=== PATIENT | male | born 1935 | race Caucasian/White ===

== ENCOUNTER 2020-11-10 14:16 | Inpatient (IN) | payer MEDICARE ==
--- NOTE | 2020-11-10 14:41 | ED ---
General Adult HPI - General Chief complaint: Shortness of Breath Stated complaint: Pneumonia Time Seen by Provider: 11/10/20 14:20 Source: patient, EMS, RN notes reviewed, old records reviewed Mode of arrival: EMS Limitations: no limitations - History of Present Illness Initial comments: This is an 85-year-old male presents emergency department from [facility]. During the week the patient complained of difficulty breathing for at least a week he went saw a physician and he was put on Augmentin however the difficulty breathing and cough got worse and went to the emergency department [facility] and they diagnosed with bilateral pneumonia and start him on IV antibiotics and requested transfer to our facility. Patient COVID neg ative test today. Patient states he didn't know that he had a fever but he felt like it broke today. Patient denies any chest pain patient denies abdominal pain patient denies any lightheadedness or dizziness. Patient denies any other symptoms at this time except for difficulty breathing and a cough. Patient was started on IV antibiotics at the other facility. - Related Data Home Medications Medication Instructions Recorded Confirmed Aspirin 81 mg PO DAILY 03/03/15 03/03/15 Cholecalciferol [Vitamin D3] 1,000 unit PO DAILY 03/03/15 03/03/15 Exenatide [Byetta] 5 mcg SQ BID 03/03/15 03/03/15 Ezetimibe [Zetia] 10 mg PO HS 03/03/15 03/03/15 Glimepiride [Amaryl] 2 mg PO BID 03/03/15 03/03/15 Insulin Glargine [Lantus] 11 unit SQ BID 03/03/15 03/04/15 Lisinopril/Hydrochlorothiazide 1 tab PO QAM 03/03/15 03/03/15 [Zestoretic 20-12.5 mg Tablet] amLODIPine [Norvasc] 5 mg PO QAM 03/03/15 03/03/15 atenoloL [Tenormin] 25 mg PO QAM 03/03/15 03/03/15 Previous Rx's Medication Instructions Recorded HYDROcodone/APAP 5-325MG [[place]que[place] 5] 1 - 2 each PO Q4H PRN #20 tab 03/04/15 Allergies Allergy/AdvReac Type Severity Reaction Status Date / Time No Known Allergies Allergy Verified 08/09/21 14:34 Review of Systems ROS Statement: Those systems with pertinent positive or pertinent negative responses have been documented in the HPI. ROS Other: All systems not noted in ROS Statement are negative. Past Medical History Past Medical History: Diabetes Mellitus, GERD/Reflux, Hypertension, Myocardial Infarction ([place]), Pneumonia, Skin Disorder Additional Past Medical History / Comment(s): skin lesions,varicose vein,constipation Last Myocardial Infarction Date:: ?2010 History of Any Multi-Drug Resistant Organisms: None Reported Past Surgical History: Appendectomy, Heart Catheterization With Stent Additional Past Surgical History / Comment(s): heart stents X 6,skin lesions removed, gallbladder removed Past Anesthesia/Blood Transfusion Reactions: No Reported Reaction Date of Last Stent Placement:: ?2010 Past Psychological History: No Psychological Hx Reported Smoking Status: Former smoker Past Alcohol Use History: None Reported Past Drug Use History: None Reported - Past Family History Mother Family Medical History: Myocardial Infarction ([place]) Father Family Medical History: Myocardial Infarction ([place]) General Exam - General Exam Comments Initial Comments: GENERAL: Patient is well-developed and well-nourished. Patient is nontoxic and well- hydrated and is in mild distress. ENT: Neck is soft and supple. No significant lymphadenopathy is noted. Oropharynx is clear. Moist mucous membranes. Neck has full range of motion without eliciting any pain. EYES: The sclera were anicteric and conjunctiva were pink and moist. Extraocular movements were intact and pupils were equal round and reactive to light. Eyelids were unremarkable. PULMONARY: Patient is crackles bilateral bases. CARDIOVASCULAR: There is a regular rate and rhythm without any murmurs gallops or rubs. ABDOMEN: Soft and nontender with normal bowel sounds. SKIN: Skin is clear with no lesions or rashes and otherwise unremarkable. NEUROLOGIC: Patient is alert and oriented x3. Cranial nerves II through XII are grossly intact. Motor and sensory are also intact. Normal speech, volume and content. Symmetrical smile. MUSCULOSKELETAL: Normal extremities with adequate strength and full range of motion. No lower extremity swelling or edema. No calf tenderness. LYMPHATICS: No significant lymphadenopathy is noted PSYCHIATRIC: Normal psychiatric evaluation. Limitations: no limitations Course Vital Signs 11/10/20 11/10/20 14:20 14:31 Temperature 98.1 F Pulse Rate 72 81 Respiratory 18 18 Rate Blood Pressure 168/86 165/89 O2 Sat by Pulse 98 98 Oximetry Medical Decision Making - Medical Decision Making I reviewed the x-ray and patient has pneumonia. I spoke with the [facility]ist agreed to admit the patient admitted the patient wrote admitting orders. Disposition Clinical Impression: Pneumonia, Failure of outpatient treatment Disposition: ADMITTED IP TO THIS HOSP Referrals: Madeleine De Dios MD [Primary Care Provider] - 1-2 days Time of Disposition: 14:41
[2020-11-10] MEDS ORDERED: PNEUMONIA PROTOCOL UTILIZED 1 EACH MISC PO PRN (14:45)
[2020-11-10] MEDS ORDERED: AZITHROMYCIN 500 MG in SODIUM CHLORIDE 0.9% 250 ML IVPB STA (14:45)
[2020-11-10 15:01] LABS: Basophils % (A) 0 %; Eosinophils # (A) 0.1 k/uL (0-0.7); Eosinophils % (A) 1 %; HCT 39.6 % (39.0-53.0); HGB 12.8 gm/dL (13.0-17.5); Lymphocytes # (A) 1.6 k/uL (1.0-4.8); Lymphocytes % (A) 16 %; MCH 30.4 pg (25.0-35.0); MCHC 32.3 g/dL (31.0-37.0); MCV 93.9 fL (80.0-100.0); Mean Platelet Volume 8.3; Monocytes # (A) 0.3 k/uL (0-1.0); Monocytes % (A) 3 %; Neutrophils # (A) 7.6 k/uL (1.3-7.7); Neutrophils % (A) 79 %; Platelet Count 275 k/uL (150-450); RBC 4.22 m/uL (4.30-5.90); RDW 12.7 % (11.5-15.5); WBC 9.6 k/uL (3.8-10.6)
[2020-11-10 15:13] LABS: Albumin 3.1 g/dL (3.5-5.0); Potassium 4.7 mmol/L (3.5-5.1); Total Bilirubin 0.5 mg/dL (0.2-1.3); Total Protein 5.7 g/dL (6.3-8.2)
[2020-11-10] MEDS ORDERED: IPRATROPIUM-ALBUTEROL 3 ML NEB INHALATION PRN (17:38)
--- NOTE | 2020-11-10 17:48 | P.HPIM ---
History of Present Illness Patient is an 85-year-old male was transferred from [facility] after he presented there with shortness of breath has been going on for about a week. Patient had a fever as well. Patient did receive Covid 19 vaccine. Covid 19 that was done at [facility] was negative although Covid 19 was repeated here because of the bilateral pneumonia with came back positive. Patient received Covid 19 vaccine in month of May. Patient was complaining of cough was also having some generalized body aches during last week. We'll obtain LDH, d-dimer, pro-calcitonin, pulmonary consultation. Patient is requiring 4 L of oxygen this time. Patient usually doesn't use oxygen at home. REVIEW OF SYSTEMS: CONSTITUTIONAL: As mentioned in the interval history HEENT: No recent visual problems or hearing problems. Denied any sore throat. CARDIOVASCULAR: No chest pain, orthopnea, PND, no palpitations, no syncope. PULMONARY: no hemoptysis. GASTROINTESTINAL: No diarrhea, no nausea, no vomiting, no abdominal pain. NEUROLOGICAL: No headaches, no weakness, no numbness. HEMATOLOGICAL: Denies any bleeding or petechiae. GENITOURINARY: Denies any burning micturition, frequency, or urgency. MUSCULOSKELETAL/RHEUMATOLOGICAL: Denies any joint pain, swelling, or any muscle pain. ENDOCRINE: Denies any polyuria or polydipsia. The rest of the 14-point review of systems is negative. PHYSICAL EXAMINATION: GENERAL: The patient is alert and oriented x3, not in any acute distress. Well developed, well nourished. HEENT: Pupils are round and equally reacting to light. EOMI. No scleral icterus. No conjunctival pallor. Normocephalic, atraumatic. No pharyngeal erythema. No thyromegaly. CARDIOVASCULAR: S1 and S2 present. No murmurs, rubs, or gallops. PULMONARY: Chest is clear to auscultation, no wheezing or crackles. ABDOMEN: Soft, nontender, nondistended, normoactive bowel sounds. No palpable organomegaly. MUSCULOSKELETAL: No joint swelling or deformity. EXTREMITIES: No cyanosis, clubbing, or pedal edema. NEUROLOGICAL: Gross neurological examination did not reveal any focal deficits. SKIN: No rashes. Assessment and plan -Covid 19 pneumonia patient has bilateral pneumonia: Patient will be started on Decadron, pulmonary will be consulted will repeat a chest x-ray. I'm unable to find any medical records from [facility]. Patient was started on Lovenox, d-dimer will be ordered. Patient will be started on Covid 19 vitamins, may qualify for Remdesivir. Pulmonology was consulted. -Type 2 diabetes mellitus: Patient blood sugars are expected to go up patient will be resumed on his home regimen but will increase the long-acting insulin dose 25 units twice a day from 17 units and patient was started on sliding scale insulin as well -Gastro-Esophageal reflux disease -Hypertension -Coronary artery disease disease with stents in the past -For above-mentioned chronic medical problems his home medications will be resumed once verified. DVT prophylaxis: Lovenox Past Medical History Past Medical History: Diabetes Mellitus, GERD/Reflux, Hypertension, Myocardial Infarction ([place]), Pneumonia, Skin Disorder Additional Past Medical History / Comment(s): skin lesions,varicose vein,constipation Last Myocardial Infarction Date:: ?2010 History of Any Multi-Drug Resistant Organisms: None Reported Past Surgical History: Appendectomy, Heart Catheterization With Stent Additional Past Surgical History / Comment(s): heart stents X 6,skin lesions removed, gallbladder removed Past Anesthesia/Blood Transfusion Reactions: No Reported Reaction Date of Last Stent Placement:: ?2010 Past Psychological History: No Psychological Hx Reported Smoking Status: Former smoker Past Alcohol Use History: None Reported Past Drug Use History: None Reported - Past Family History Mother Family Medical History: Myocardial Infarction ([place]) Father Family Medical History: Myocardial Infarction ([place]) Medications and Allergies Home Medications Medication Instructions Recorded Confirmed Type Aspirin 162 mg PO DAILY 03/03/15 11/10/20 History Cholecalciferol [Vitamin D3] 1,000 unit PO DAILY 03/03/15 11/10/20 History Exenatide [Byetta] 5 mcg SQ BID 03/03/15 03/03/15 History Ezetimibe [Zetia] 10 mg PO HS 03/03/15 03/03/15 History Glimepiride [Amaryl] 2 mg PO BID 03/03/15 03/03/15 History Insulin Glargine [Lantus] 17 unit SQ BID-W/MEALS 03/03/15 11/10/20 History Lisinopril/Hydrochlorothiazide 1 tab PO QAM 03/03/15 03/03/15 History [Zestoretic 20-12.5 mg Tablet] amLODIPine [Norvasc] 5 mg PO QAM 03/03/15 03/03/15 History atenoloL [Tenormin] 25 mg PO QAM 03/03/15 03/03/15 History HYDROcodone/APAP 5-325MG [[place] 5] 1 - 2 each PO Q4H PRN #20 tab 03/04/15 Rx Albuterol Inhaler [Ventolin Hfa 1 - 2 puff INHALATION RT-Q8H PRN 11/10/20 11/10/20 History Inhaler] Allergies Allergy/AdvReac Type Severity Reaction Status Date / Time metformin AdvReac Diarrhea Verified 11/10/20 16:56 Physical Exam Vitals: Vital Signs Temp Pulse Resp BP Pulse Ox 11/10/20 14:31 81 18 165/89 98 11/10/20 14:20 98.1 F 72 18 168/86 98 Intake and Output 11/10/20 11/10/20 11/10/20 06:59 14:59 22:59 Other: Weight 79.832 kg Results CBC & Chem 7: 11/10/20 14:39 11/10/20 14:39 Labs: Abnormal Lab Results - Last 24 Hours (Table) 11/10/20 11/10/20 11/10/20 Range/Units 14:39 14:39 14:39 RBC 4.22 L (4.30-5.90) m/uL Hgb 12.8 L (13.0-17.5) gm/dL Sodium 136 L (137-145) mmol/L Carbon Dioxide 20 L (22-30) mmol/L Glucose 268 H (74-99) mg/dL Plasma Lactic Acid Bart 2.3 H* (0.7-2.0) mmol/L Total Protein 5.7 L (6.3-8.2) g/dL Albumin 3.1 L (3.5-5.0) g/dL Coronavirus (PCR) (Not Detectd) 11/10/20 Range/Units 15:00 RBC (4.30-5.90) m/uL Hgb (13.0-17.5) gm/dL Sodium (137-145) mmol/L Carbon Dioxide (22-30) mmol/L Glucose (74-99) mg/dL Plasma Lactic Acid Bart (0.7-2.0) mmol/L Total Protein (6.3-8.2) g/dL Albumin (3.5-5.0) g/dL Coronavirus (PCR) Detected A (Not Detectd)
[2020-11-10] MEDS: dexAMETHasone 2 MG TAB PO SCH (18:09)
[2020-11-10 20:38] LABS: Glucose,Whole Blood 409 mg/dL (75-99)
[2020-11-10] MEDS ORDERED: ALBUTEROL HFA INHALER INHALATION PRN (20:43)
[2020-11-10] MEDS: FAMOTIDINE 20 MG TAB PO SCH (20:49)
[2020-11-10] MEDS: ASCORBIC ACID 500 MG TAB PO SCH (20:49)
[2020-11-10] MEDS: INSULIN ASPART (NovoLOG) 100 UNIT/ML VIAL SQ SCH (20:52)
[2020-11-10] MEDS ORDERED: ASCORBIC ACID 500 MG TAB PO SCH (21:00)
[2020-11-10] MEDS: GLIMEPIRIDE 2 MG TAB PO SCH (23:15)
[2020-11-11] MEDS ORDERED: INSULIN DETEMIR (LEVEMIR) 100 UNIT/ML SYR SQ SCH (07:30)
[2020-11-11 07:43] LABS: Glucose,Whole Blood 237 mg/dL (75-99)
[2020-11-11] MEDS: INSULIN ASPART (NovoLOG) 100 UNIT/ML VIAL SQ SCH ×4 (07:45→22:21)
[2020-11-11] MEDS: amLODIPine 5 MG TAB PO SCH (07:46)
[2020-11-11] MEDS: atenoloL 25 MG TAB PO SCH (07:46)
[2020-11-11] MEDS: ASCORBIC ACID 500 MG TAB PO SCH ×2 (07:46→22:21)
[2020-11-11] MEDS: dexAMETHasone 2 MG TAB PO SCH (07:47)
[2020-11-11] MEDS: ZINC SULFATE 220 MG CAP PO SCH (07:47)
[2020-11-11] MEDS: ENOXAPARIN 40 MG/0.4 ML SYRINGE SQ SCH (07:47)
[2020-11-11] MEDS: FAMOTIDINE 20 MG TAB PO SCH ×2 (07:47→22:21)
[2020-11-11] MEDS: CHOLECALCIFEROL 25 MCG (1000 IU) TABLET PO SCH (07:53)
[2020-11-11] MEDS ORDERED: AZITHROMYCIN 500 MG TAB PO SCH (09:00)
--- NOTE | 2020-11-11 09:03 | XR ---
EXAMINATION TYPE: XR chest 1V portable DATE OF EXAM: 11/11/2020 COMPARISON: Outside chest x-ray 11/10/2020 HISTORY: Covid pneumonia TECHNIQUE: Single frontal view of the chest is obtained. FINDINGS: Bilateral peripheral airspace disease is again noted. No evident pneumothorax. The hemidia phragms are obscured. Heart size is likely stable accounting for differences in technique. There are overlying artifacts. IMPRESSION: Findings consistent with patient's history of Covid pneumonia. There may be some progres yoon in airspace disease.
[2020-11-11] MEDS: GLIMEPIRIDE 2 MG TAB PO SCH ×2 (09:35→23:51)
--- NOTE | 2020-11-11 10:29 | P.CNPUL ---
History of Present Illness Consult date: 11/11/20 Requesting physician: Kishan Sandy Reason for consult: dyspnea, cough, hypoxemia, pneumonia, abnormal CXR/CT Chief complaint: Fatigue, cough, shortness of breath. History of present illness: Pulmonary/critical care consultation dated 11/11/2020. 85-year-old male, who presents to the emergency department via EMS, from [facility]. The patient states that he has not been feeling well for at least 8-10 days and may be a bit longer. His complaints include fatigue, shortness of breath, cough, and generally just not feeling well. He apparently saw his primary care provider, and was placed on Augmentin. At that point, things got worse, and he went to the emergency department at [facility] when he was diagnosed as having bilateral pneumonia. He was started on IV antibiotics and requested transfer to [facility]. The patient did test positive for coronavirus infection although his initial test was negative. The patient has a history of diabetes mellitus, GERD, hypertension, myocardial infarction, pneumonia, varicose veins, and chronic constipation. He also has a history of CAD, with previous heart catheterization and stent placement. Lab data includes a white count of 9.6, hemoglobin 12.8, hematocrit 39.6, and a platelet count of 275,000. D-dimer was 3.50. Sodium 136, potassium 4.7, chlorides 105, CO2 20, anion gap 11, BUN 19, and creatinine 0.97. Coronavirus testing here was positive. Chest x-ray shows diffuse bilateral airspace dise ase. Review of Systems REVIEW OF SYSTEMS: CONSTITUTIONAL: Fatigue, weakness, lack of energy. NEUROLOGIC: [ Negative.] HEENT: [ Negative.] CARDIAC: [Negative.] PULMONARY: Shortness of breath, cough, chest congestion. GI: Decreased appetite. : [Negative.] RHEUMATOLOGIC: [ Negative.] IMMUNOLOGIC: [ Negative.] ENDOCRINE: [Negative. ] DERMATOLOGIC: [Negative.] Past Medical History Past Medical History: Diabetes Mellitus, GERD/Reflux, Hypertension, Myocardial Infarction ([place]), Pneumonia, Skin Disorder Additional Past Medical History / Comment(s): skin lesions,varicose vein,constipation Last Myocardial Infarction Date:: ?2010 History of Any Multi-Drug Resistant Organisms: None Reported Past Surgical History: Appendectomy, Heart Catheterization With Stent Additional Past Surgical History / Comment(s): heart stents X 6,skin lesions removed, gallbladder removed Past Anesthesia/Blood Transfusion Reactions: No Reported Reaction Date of Last Stent Placement:: ?2010 Past Psychological History: No Psychological Hx Reported Smoking Status: Former smoker Past Alcohol Use History: None Reported Additional Past Alcohol Use History / Comment(s): quit smoking approx 1984, smoked approx 30 yrs Past Drug Use History: None Reported - Past Family History Mother Family Medical History: Myocardial Infarction ([place]) Father Family Medical History: Myocardial Infarction ([place]) Medications and Allergies Home Medications Medication Instructions Recorded Confirmed Type Aspirin 162 mg PO DAILY 03/03/15 11/10/20 History Insulin Glargine [Lantus] 17 unit SQ BID-W/MEALS 03/03/15 11/10/20 History Albuterol Inhaler [Ventolin Hfa 1 - 2 puff INHALATION RT-Q8H PRN 11/10/20 11/10/20 History Inhaler] Amiodarone [Cordarone] 200 mg PO DAILY 11/10/20 11/10/20 History Amoxic-Pot Clav 875-125Mg 1 tab PO Q12H 11/10/20 11/10/20 History [Augmentin 875-125] Apixaban [Eliquis] 5 mg PO Q12H 11/10/20 11/10/20 History Benzonatate [Tessalon Perles] 100 mg PO TID PRN 11/10/20 11/10/20 History Cholecalciferol (Vitamin D3) 125 mcg PO Q7D 11/10/20 11/10/20 History [Vitamin D3 (125 MCG = 5,000 IU)] Cyanocobalamin (Vitamin B-12) 1,000 mcg PO DAILY 11/10/20 11/10/20 History [Vitamin B-12] Doxycycline Hyclate 100 mg PO Q12H 11/10/20 11/10/20 History Exenatide [Byetta] 10 mcg SQ BID 11/10/20 11/10/20 History Furosemide [Lasix] 20 mg PO DAILY 11/10/20 11/10/20 History Gabapentin [Neurontin] 600 mg PO BID 11/10/20 11/10/20 History Loperamide HCl [Loperamide] 2 mg PO Q4-6H PRN 11/10/20 11/10/20 History Loratadine [Claritin] 10 mg PO DAILY 11/10/20 11/10/20 History Losartan [Cozaar] 50 mg PO DAILY 11/10/20 11/10/20 History Metoprolol Tartrate [Lopressor] 50 mg PO BID 11/10/20 11/10/20 History Pantoprazole [Protonix] 40 mg PO BID 11/10/20 11/10/20 History Spironolactone [Aldactone] 25 mg PO DAILY 11/10/20 11/10/20 History Tamsulosin HCl [Flomax] 0.4 mg PO DAILY 11/10/20 11/10/20 History Allergies Allergy/AdvReac Type Severity Reaction Status Date / Time metformin AdvReac Diarrhea Verified 11/10/20 16:56 Physical Exam Osteopathic Statement: *. No significant issues noted on an osteopathic structural exam other than those noted in the History and Physical/Consult. Vitals: Vital Signs Temp Pulse Pulse Resp BP BP Pulse Ox 11/11/20 05:49 97.7 F 58 L 18 156/71 89 L 11/11/20 02:00 97.6 F 62 17 168/65 92 L 11/10/20 23:15 63 18 11/10/20 20:55 98 F 69 18 159/89 97 11/10/20 20:00 97.7 F 63 17 159/70 97 11/10/20 18:13 82 18 141/67 98 11/10/20 17:47 18 11/10/20 14:31 81 18 165/89 98 11/10/20 14:20 98.1 F 72 18 168/86 98 Intake and Output 11/10/20 11/11/20 11/11/20 22:59 06:59 14:59 Other: Voiding Method Toilet # Voids 2 Weight 79.832 kg No acute distress, oriented 3. The patient is currently on 3 L, with a saturation of 96%. HEENT examination is grossly unremarkable. Neck supple. Full range of motion. No adenopathy thyromegaly or neck vein distention. Cardiovascular examination reveals regular rhythm rate. S1-S2 normal. No S3 or S4. No discernible murmur noted. Heart sounds are distant. Heart rate 57 bpm. Lungs reveal diffuse bilateral rhonchi and crackles. Breath sounds equal. No wheezes. Abdomen soft bowel sounds are heard. No masses or tenderness. Extremities are intact. No cyanosis clubbing or edema. Skin is without rash or lesion. Neurologic examination is brief but nonfocal. Results - Laboratory Findings CBC and BMP: 11/10/20 14:39 11/10/20 14:39 PT/INR, D-dimer D-Dimer 3.50 mg/L FEU (<0.60) H 11/10/20 20:25 Abnormal lab findings: Abnormal Labs 11/10/20 11/10/20 11/10/20 14:39 14:39 14:39 RBC 4.22 L Hgb 12.8 L D-Dimer Sodium 136 L Carbon Dioxide 20 L Glucose 268 H POC Glucose (mg/dL) Plasma Lactic Acid Bart 2.3 H* Lactate Dehydrogenase Total Protein 5.7 L Albumin 3.1 L Coronavirus (PCR) 11/10/20 11/10/20 11/10/20 15:00 17:41 17:41 RBC Hgb D-Dimer Sodium Carbon Dioxide Glucose POC Glucose (mg/dL) Plasma Lactic Acid Bart 2.1 H* Lactate Dehydrogenase 650 H Total Protein Albumin Coronavirus (PCR) Detected A 11/10/20 11/10/20 11/10/20 20:25 20:25 20:34 RBC Hgb D-Dimer 3.50 H Sodium Carbon Dioxide Glucose POC Glucose (mg/dL) 409 H Plasma Lactic Acid Bart 2.1 H* Lactate Dehydrogenase Total Protein Albumin Coronavirus (PCR) 11/11/20 07:27 RBC Hgb D-Dimer Sodium Carbon Dioxide Glucose POC Glucose (mg/dL) 237 H Plasma Lactic Acid Bart Lactate Dehydrogenase Total Protein Albumin Coronavirus (PCR) - Diagnostic Findings Chest x-ray: image reviewed Assessment and Plan Assessment: Acute hypoxemic respiratory failure, secondary to coronavirus/COVID 19 pneumonia. History of diabetes mellitus. History of gastroesophageal reflux disease. History of hypertension. Coronary artery disease, with multiple stent placements. History of hyperlipidemia. History of myocardial infarction. History of varicose veins. History of chronic constipation. Plan: Plan dated 11/11/2020. Currently, the patient is on Rocephin and Zithromax. If not or ready done, a pro-calcitonin level should be done. Also, the patient is on Decadron, 6 mg a day, and Lovenox 40 mg subcu daily. The patient is beyond the window for REM. The patient is not sick enough to receive TOCI. The patient is on vitamin C, vitamin D3, and zinc. Additional recommendations and suggestions are forthcoming. We'll continue to follow the patient make recommendations where appropriate. Time with Patient: Greater than 30
[2020-11-11 11:14] LABS: African American GFR (CKD) 71.6 (60.0-200.0); Albumin 3.3 g/dL (3.80-4.90); Albumin/Globulin Ratio 1.57 (1.60-3.17); Anion Gap 7.9 mmol/L (4.00-12.00); BUN/Creat Ratio 25.45 Ratio (12.00-20.00); Carbon Dioxide 25.1 mmol/L (21.6-31.8); Globulin 2.1 g/dL (1.6-3.3); Non-African American GFR(CKD) 61.8 (60.0-200.0); Potassium 4.3 mmol/L (3.5-5.5); Total Bilirubin 0.2 mg/dL (0.3-1.2); Total Protein 5.4 g/dL (6.2-8.2)
[2020-11-11 11:36] LABS: Glucose,Whole Blood 233 mg/dL (75-99)
--- NOTE | 2020-11-11 12:35 | P.PN ---
Subjective Patient is an 85-year-old male was transferred from [facility] after he presented there with shortness of breath has been going on for about a week. Patient had a fever as well. Patient did receive Covid 19 vaccine. Covid 19 that was done at [facility] was negative although Covid 19 was repeated here because of the bilateral pneumonia with came back positive. Patient received Covid 19 vaccine in month of May. Patient was complaining of cough was also having some generalized body aches during last week. We'll obtain LDH, d-dimer, pro-calcitonin, pulmonary consultation. Patient is requiring 4 L of oxygen this time. Patient usually doesn't use oxygen at home. 11/11/2020 Patient's inflammatory markers a are elevated. Patient blood glucose is still elevated because of his increasing the dose of long-acting insulin to 30 units from 25 units. Patient is receiving Decadron. There is no evidence of bacter ial pneumonia at this time, antibodies will be discontinued awaiting pro- calcitonin levels. Patient is feeling bit better patient is presently on 3 L of oxygen was on 5 L oxygen yesterday. Constitutional: Denied any fatigue denied any fever. Cardio vascular: denied any chest pain, palpitations Gastrointestinal denied any nausea vomiting Pulmonary: Denied any shortness of breath cough Neurologic denied any new focal deficits All inpatient medications were reviewed and appropriate changes in these medications as dictated in the interval history and assessment and plan. PHYSICAL EXAMINATION: GENERAL: The patient is alert and oriented x3, not in any acute distress. Well developed, well nourished. HEENT: Pupils are round and equally reacting to light. EOMI. No scleral icterus. No conjunctival pallor. Normocephalic, atraumatic. No pharyngeal erythema. No thyromegaly. CARDIOVASCULAR: S1 and S2 present. No murmurs, rubs, or gallops. PULMONARY: Chest is clear to auscultation, no wheezing or crackles. ABDOMEN: Soft, nontender, nondistended, normoactive bowel sounds. No palpable organomegaly. MUSCULOSKELETAL: No joint swelling or deformity. EXTREMITIES: No cyanosis, clubbing, or pedal edema. NEUROLOGICAL: Gross neurological examination did not reveal any focal deficits. SKIN: No rashes. Assessment and plan -Covid 19 pneumonia patient has bilateral pneumonia: Patient will be reviewed on Decadron, pulmonary evaluated the patient, to be chest x-rays consistent with "pneumonia Patient will be reviewed on Covid 19 vitamins. -Type 2 diabetes mellitus: Uncontrolled elevated secondary to systemic steroids, increasing the dose of long-acting insulin as mentioned above -Gastro-Esophageal reflux disease -Hypertension -Coronary artery disease disease with stents in the past -For above-mentioned chronic medical problems his home medications will be resumed once verified. DVT prophylaxis: Lovenox Objective - Vital Signs Vital signs: Vital Signs Temp 97.7 F 11/11/20 10:05 Pulse 57 L 11/11/20 10:05 Resp 18 11/11/20 10:05 BP 136/71 11/11/20 10:05 Pulse Ox 96 11/11/20 10:05 Intake & Output 11/10/20 11/11/20 11/11/20 18:59 06:59 18:59 Weight 79.832 kg Other: Voiding Method Toilet # Voids 2 - Labs CBC & Chem 7: 11/10/20 14:39 11/11/20 05:31 Labs: Abnormal Lab Results - Last 24 Hours (Table) 11/10/20 11/10/20 11/10/20 Range/Units 14:39 14:39 14:39 RBC 4.22 L (4.30-5.90) m/uL Hgb 12.8 L (13.0-17.5) gm/dL D-Dimer (<0.60) mg/L FEU Sodium 136 L (137-145) mmol/L Carbon Dioxide 20 L (22-30) mmol/L BUN (9.0-27.0) mg/dL BUN/Creatinine Ratio (12.00-20.00) Ratio Glucose 268 H (74-99) mg/dL POC Glucose (mg/dL) (75-99) mg/dL Plasma Lactic Acid Bart 2.3 H* (0.7-2.0) mmol/L Total Bilirubin (0.3-1.2) mg/dL Lactate Dehydrogenase (313-618) U/L Total Protein 5.7 L (6.3-8.2) g/dL Albumin 3.1 L (3.5-5.0) g/dL Albumin/Globulin Ratio (1.60-3.17) g/dL Coronavirus (PCR) (Not Detectd) 11/10/20 11/10/20 11/10/20 Range/Units 15:00 17:41 17:41 RBC (4.30-5.90) m/uL Hgb (13.0-17.5) gm/dL D-Dimer (<0.60) mg/L FEU Sodium (137-145) mmol/L Carbon Dioxide (22-30) mmol/L BUN (9.0-27.0) mg/dL BUN/Creatinine Ratio (12.00-20.00) Ratio Glucose (74-99) mg/dL POC Glucose (mg/dL) (75-99) mg/dL Plasma Lactic Acid Bart 2.1 H* (0.7-2.0) mmol/L Total Bilirubin (0.3-1.2) mg/dL Lactate Dehydrogenase 650 H (313-618) U/L Total Protein (6.3-8.2) g/dL Albumin (3.5-5.0) g/dL Albumin/Globulin Ratio (1.60-3.17) g/dL Coronavirus (PCR) Detected A (Not Detectd) 11/10/20 11/10/20 11/10/20 Range/Units 20:25 20:25 20:34 RBC (4.30-5.90) m/uL Hgb (13.0-17.5) gm/dL D-Dimer 3.50 H (<0.60) mg/L FEU Sodium (137-145) mmol/L Carbon Dioxide (22-30) mmol/L BUN (9.0-27.0) mg/dL BUN/Creatinine Ratio (12.00-20.00) Ratio Glucose (74-99) mg/dL POC Glucose (mg/dL) 409 H (75-99) mg/dL Plasma Lactic Acid Bart 2.1 H* (0.7-2.0) mmol/L Total Bilirubin (0.3-1.2) mg/dL Lactate Dehydrogenase (313-618) U/L Total Protein (6.3-8.2) g/dL Albumin (3.5-5.0) g/dL Albumin/Globulin Ratio (1.60-3.17) g/dL Coronavirus (PCR) (Not Detectd) 11/11/20 11/11/20 11/11/20 Range/Units 05:31 07:27 11:31 RBC (4.30-5.90) m/uL Hgb (13.0-17.5) gm/dL D-Dimer (<0.60) mg/L FEU Sodium (137-145) mmol/L Carbon Dioxide (22-30) mmol/L BUN 28.0 H (9.0-27.0) mg/dL BUN/Creatinine Ratio 25.45 H (12.00-20.00) Ratio Glucose 282 H (74-99) mg/dL POC Glucose (mg/dL) 237 H 233 H (75-99) mg/dL Plasma Lactic Acid Bart (0.7-2.0) mmol/L Total Bilirubin 0.2 L (0.3-1.2) mg/dL Lactate Dehydrogenase (313-618) U/L Total Protein 5.4 L (6.3-8.2) g/dL Albumin 3.30 L (3.5-5.0) g/dL Albumin/Globulin Ratio 1.57 L (1.60-3.17) g/dL Coronavirus (PCR) (Not Detectd)
[2020-11-11 16:59] LABS: Glucose,Whole Blood 187 mg/dL (75-99)
[2020-11-11] MEDS: INSULIN DETEMIR (LEVEMIR) 100 UNIT/ML SYR SQ SCH (17:28)
[2020-11-11 18:19] LABS: Ferritin 1388.5 ng/mL (22.0-322.0)
[2020-11-11 20:46] LABS: Glucose,Whole Blood 172 mg/dL (75-99)
[2020-11-12 07:10] LABS: Glucose,Whole Blood 50 mg/dL (75-99)
[2020-11-12] MEDS: INSULIN ASPART (NovoLOG) 100 UNIT/ML VIAL SQ SCH ×4 (07:11→20:51)
[2020-11-12] MEDS: INSULIN DETEMIR (LEVEMIR) 100 UNIT/ML SYR SQ SCH ×2 (07:11→17:25)
[2020-11-12 07:32] LABS: Glucose,Whole Blood 53 mg/dL (75-99)
[2020-11-12 08:08] LABS: Glucose,Whole Blood 72 mg/dL (75-99)
[2020-11-12] MEDS: ASCORBIC ACID 500 MG TAB PO SCH ×2 (08:45→20:53)
[2020-11-12] MEDS: FAMOTIDINE 20 MG TAB PO SCH ×2 (08:45→20:52)
[2020-11-12] MEDS: dexAMETHasone 2 MG TAB PO SCH (08:45)
[2020-11-12] MEDS: ZINC SULFATE 220 MG CAP PO SCH (08:45)
[2020-11-12] MEDS: amLODIPine 5 MG TAB PO SCH (08:45)
[2020-11-12] MEDS: CHOLECALCIFEROL 25 MCG (1000 IU) TABLET PO SCH (08:45)
[2020-11-12] MEDS: ENOXAPARIN 40 MG/0.4 ML SYRINGE SQ SCH ×2 (08:45→20:51)
[2020-11-12] MEDS: atenoloL 25 MG TAB PO SCH (08:45)
[2020-11-12] MEDS: GLIMEPIRIDE 2 MG TAB PO SCH ×2 (10:46→20:52)
[2020-11-12 11:36] LABS: Glucose,Whole Blood 151 mg/dL (75-99)
--- NOTE | 2020-11-12 12:54 | P.PN ---
Subjective Patient is an 85-year-old male was transferred from [facility] after he presented there with shortness of breath has been going on for about a week. Patient had a fever as well. Patient did receive Covid 19 vaccine. Covid 19 that was done at [facility] was negative although Covid 19 was repeated here because of the bilateral pneumonia with came back positive. Patient received Covid 19 vaccine in month of May. Patient was complaining of cough was also having some generalized body aches during last week. We'll obtain LDH, d-dimer, pro-calcitonin, pulmonary consultation. Patient is requiring 4 L of oxygen this time. Patient usually doesn't use oxygen at home. 11/11/2020 Patient's inflammatory markers a are elevated. Patient blood glucose is still elevated because of his increasing the dose of long-acting insulin to 30 units from 25 units. Patient is receiving Decadron. There is no evidence of bacter ial pneumonia at this time, antibodies will be discontinued awaiting pro- calcitonin levels. Patient is feeling bit better patient is presently on 3 L of oxygen was on 5 L oxygen yesterday. 11/12/2020 Patient does have improvement in his respiratory status presently requiring 2 L of oxygen patient was complaining of dysphagia because of which speech therapy will evaluate the patient. Patient is bradycardic, discontinued and atenolol increase the dose of amlodipine. Patient blood pressure is still bit higher. Constitutional: Denied any fatigue denied any fever. Cardio vascular: denied any chest pain, palpitations Gastrointestinal denied any nausea vomiting Pulmonary: Denied any shortness of breath cough Neurologic denied any new focal deficits All inpatient medications were reviewed and appropriate changes in these medications as dictated in the interval history and assessment and plan. PHYSICAL EXAMINATION: GENERAL: The patient is alert and oriented x3, not in any acute distress. Well developed, well nourished. HEENT: Pupils are round and equally reacting to light. EOMI. No scleral icterus. No conjunctival pallor. Normocephalic, atraumatic. No pharyngeal erythema. No t hyromegaly. CARDIOVASCULAR: S1 and S2 present. No murmurs, rubs, or gallops. PULMONARY: Chest is clear to auscultation, no wheezing or crackles. ABDOMEN: Soft, nontender, nondistended, normoactive bowel sounds. No palpable organomegaly. MUSCULOSKELETAL: No joint swelling or deformity. EXTREMITIES: No cyanosis, clubbing, or pedal edema. NEUROLOGICAL: Gross neurological examination did not reveal any focal deficits. SKIN: No rashes. Assessment and plan -Covid 19 pneumonia patient has bilateral pneumonia: Patient will be reviewed on Decadron, pulmonary evaluated the patient, to be chest x-rays consistent with "pneumonia Patient will be reviewed on Covid 19 vitamins. Patient's d-dimer is around 3.4. pro- calcitonin is not consistent with bacterial pneumonia because of which I'm increasing the dose of Lovenox twice a day. -Bradycardia: Beta db is being discontinued patient is asymptomatic at this time -Type 2 diabetes mellitus: Uncontrolled elevated secondary to systemic steroids, increasing the dose of long-acting insulin as mentioned above -Gastro-Esophageal reflux disease -Hypertension -Coronary artery disease disease with stents in the past -For above-mentioned chronic medical problems his home medications will be resumed once verified. DVT prophylaxis: Lovenox Objective - Vital Signs Vital signs: Vital Signs Temp 97.4 F L 11/12/20 10:41 Pulse 46 L 11/12/20 10:41 Resp 16 11/12/20 10:41 BP 148/73 11/12/20 10:41 Pulse Ox 95 11/12/20 10:41 Intake & Output 11/11/20 11/12/20 11/12/20 18:59 06:59 18:59 Other: Voiding Method Toilet Toilet # Voids 1 1 - Labs CBC & Chem 7: 11/10/20 14:39 11/11/20 05:31 Labs: Abnormal Lab Results - Last 24 Hours (Table) 11/10/20 11/11/20 11/11/20 Range/Units 17:41 16:57 20:45 POC Glucose (mg/dL) 187 H 172 H (75-99) mg/dL Ferritin 1388.5 H (22.0-322.0) ng/mL 11/12/20 11/12/20 11/12/20 Range/Units 07:08 07:30 08:07 POC Glucose (mg/dL) 50 L 53 L 72 L (75-99) mg/dL Ferritin (22.0-322.0) ng/mL 11/12/20 Range/Units 11:35 POC Glucose (mg/dL) 151 H (75-99) mg/dL Ferritin (22.0-322.0) ng/mL Microbiology - Last 24 Hours (Table) 11/10/20 15:10 Blood Culture - Preliminary Blood No Growth after 24 hours 11/10/20 15:00 Blood Culture - Preliminary Blood No Growth after 24 hours
--- NOTE | 2020-11-12 14:11 | P.PN ---
Subjective Progress Note Date: 11/12/20 Principal diagnosis: Shortness of breath. Pulmonary/critical care consultation dated 11/11/2020. 85-year-old male, who presents to the emergency department via EMS, from [facility]. The patient states that he has not been feeling well for at least 8-10 days and may be a bit longer. His complaints include fatigue, shortness of breath, cough, and generally just not feeling well. He apparently saw his primary care provider, and was placed on Augmentin. At that point, things got worse, and he went to the emergency department at [facility] when he was diagnosed as having bilateral pneumonia. He was started on IV antibiotics and requested transfer to [facility]. The patient did test positive for coronavirus infection although his initial test was negative. The patient has a history of diabetes mellitus, GERD, hypertension, myocardial infarction, pneumonia, varicose veins, and chronic constipation. He also has a history of CAD, with previous heart catheterization and stent placement. Lab data includes a white count of 9.6, hemoglobin 12.8, hematocrit 39.6, and a platelet count of 275,000. D-dimer was 3.50. Sodium 136, potassium 4.7, chlorides 105, CO2 20, anion gap 11, BUN 19, and creatinine 0.97. Coronavirus testing here was positive. Chest x-ray shows diffuse bilateral airspace disease. Progress note dated 11/12/2020. 85-year-old male, who presents to the emergency department, from [facility]. The patient was diagnosed with bilateral pneumonia, and tested positive for coronavirus infection. The patient does have a history of diabetes mellitus, GERD, hypertension, myocardial infarction, pneumonia, varicose veins, and chronic constipation. Clinically, the patient is feeling a bit better today. No new labs today. The patient saturations are in the mid to high 90s on 2 L nasal cannula. Chest x-ray from yesterday, has been reviewed. Objective - Vital Signs Vital signs: Vital Signs Temp 97.4 F L 11/12/20 10:41 Pulse 46 L 11/12/20 10:41 Resp 16 11/12/20 10:41 BP 148/73 11/12/20 10:41 Pulse Ox 95 11/12/20 10:41 Intake & Output 11/11/20 11/12/20 11/12/20 18:59 06:59 18:59 Other: Voiding Method Toilet Toilet # Voids 1 1 - Exam No acute distress, oriented 3. The patient is currently on 2 L, with a saturation of 95 %. HEENT examination is grossly unremarkable. Neck supple. Full range of motion. No adenopathy thyromegaly or neck vein distention. Cardiovascular examination reveals regular rhythm rate. S1-S2 normal. No S3 or S4. No discernible murmur noted. Heart sounds are distant. Heart rate 46 bpm. Lungs reveal diffuse bilateral rhonchi and crackles. Breath sounds equal. No wheezes. Abdomen soft bowel sounds are heard. No masses or tenderness. Extremities are intact. No cyanosis clubbing or edema. Skin is without rash or lesion. Neurologic examination is brief but nonfocal. - Labs CBC & Chem 7: 11/10/20 14:39 11/11/20 05:31 Labs: Abnormal Lab Results - Last 24 Hours (Table) 11/10/20 11/11/20 11/11/20 Range/Units 17:41 16:57 20:45 POC Glucose (mg/dL) 187 H 172 H (75-99) mg/dL Ferritin 1388.5 H (22.0-322.0) ng/mL 11/12/20 11/12/20 11/12/20 Range/Units 07:08 07:30 08:07 POC Glucose (mg/dL) 50 L 53 L 72 L (75-99) mg/dL Ferritin (22.0-322.0) ng/mL 11/12/20 Range/Units 11:35 POC Glucose (mg/dL) 151 H (75-99) mg/dL Ferritin (22.0-322.0) ng/mL Microbiology - Last 24 Hours (Table) 11/10/20 15:10 Blood Culture - Preliminary Blood No Growth after 24 hours 11/10/20 15:00 Blood Culture - Preliminary Blood No Growth after 24 hours Assessment and Plan Assessment: Acute hypoxemic respiratory failure, secondary to coronavirus/COVID 19 pneumonia . History of diabetes mellitus. History of gastroesophageal reflux disease. History of hypertension. Coronary artery disease, with multiple stent placements. History of hyperlipidemia. History of myocardial infarction. History of varicose veins. History of chronic constipation. Plan: Plan dated 11/11/2020. Currently, the patient is on Rocephin and Zithromax. If not or ready done, a pro-calcitonin level should be done. Also, the patient is on Decadron, 6 mg a day, and Lovenox 40 mg subcu daily. The patient is beyond the window for REM. The patient is not sick enough to receive TOCI. The patient is on vitamin C, vitamin D3, and zinc. Additional recommendations and suggestions are forthcoming. We'll continue to follow the patient make recommendations where appropriate. Plan dated 11/12/2020. Currently, the patient remains on this, and [facility] is also receiving vitamins in the form of a week, zinc, and vitamin C. The patient remains on albuterol inhaler. Pro-calcitonin level is 0.28. Additional recommendations and suggestions are forthcoming. We will continue to follow make recommendations where appropriate. Clinically, the patient is doing better. Discharge planning underway. Time with Patient: Less than 30
[2020-11-12 16:54] LABS: Glucose,Whole Blood 238 mg/dL (75-99)
[2020-11-12 20:39] LABS: Glucose,Whole Blood 319 mg/dL (75-99)
[2020-11-13 03:18] LABS: Glucose,Whole Blood 112 mg/dL (75-99)
[2020-11-13 07:24] LABS: Glucose,Whole Blood 70 mg/dL (75-99)
[2020-11-13] MEDS: INSULIN DETEMIR (LEVEMIR) 100 UNIT/ML SYR SQ SCH ×2 (07:24→17:31)
[2020-11-13] MEDS: INSULIN ASPART (NovoLOG) 100 UNIT/ML VIAL SQ SCH ×4 (08:18→22:42)
--- NOTE | 2020-11-13 08:20 | XR ---
EXAMINATION TYPE: XR chest 1V portable DATE OF EXAM: 11/13/2020 Comparison: 11/11/2020 Clinical History: 85-year-old male CoVID pneumonia Findings: Left heart margin obscured by adjacent pleural parenchymal opacity. Extensive consolidation in the lo wer lungs and lung peripheries without significant change. Impression: Continued peripheral and basilar consolidation compatible with COVID pneumonia.
[2020-11-13] MEDS: FAMOTIDINE 20 MG TAB PO SCH ×2 (08:39→22:12)
[2020-11-13] MEDS: dexAMETHasone 2 MG TAB PO SCH (08:39)
[2020-11-13] MEDS: ASCORBIC ACID 500 MG TAB PO SCH ×2 (08:39→22:12)
[2020-11-13] MEDS: CHOLECALCIFEROL 25 MCG (1000 IU) TABLET PO SCH (08:39)
[2020-11-13] MEDS: amLODIPine 10 MG TAB PO SCH (08:39)
[2020-11-13] MEDS: ZINC SULFATE 220 MG CAP PO SCH (08:39)
[2020-11-13] MEDS: ENOXAPARIN 40 MG/0.4 ML SYRINGE SQ SCH ×2 (08:41→22:13)
[2020-11-13] MEDS: GLIMEPIRIDE 2 MG TAB PO SCH ×2 (08:45→22:12)
--- NOTE | 2020-11-13 10:22 | P.PN ---
Subjective Progress Note Date: 11/13/20 Principal diagnosis: Shortness of breath. Pulmonary/critical care consultation dated 11/11/2020. 85-year-old male, who presents to the emergency department via EMS, from [facility]. The patient states that he has not been feeling well for at least 8-10 days and may be a bit longer. His complaints include fatigue, shortness of breath, cough, and generally just not feeling well. He apparently saw his primary care provider, and was placed on Augmentin. At that point, things got worse, and he went to the emergency department at [facility] when he was diagnosed as having bilateral pneumonia. He was started on IV antibiotics and requested transfer to [facility]. The patient did test positive for coronavirus infection although his initial test was negative. The patient has a history of diabetes mellitus, GERD, hypertension, myocardial infarction, pneumonia, varicose veins, and chronic constipation. He also has a history of CAD, with previous heart catheterization and stent placement. Lab data includes a white count of 9.6, hemoglobin 12.8, hematocrit 39.6, and a platelet count of 275,000. D-dimer was 3.50. Sodium 136, potassium 4.7, chlorides 105, CO2 20, anion gap 11, BUN 19, and creatinine 0.97. Coronavirus testing here was positive. Chest x-ray shows diffuse bilateral airspace disease. Progress note dated 11/12/2020. 85-year-old male, who presents to the emergency department, from [facility]. The patient was diagnosed with bilateral pneumonia, and tested positive for coronavirus infection. The patient does have a history of diabetes mellitus, GERD, hypertension, myocardial infarction, pneumonia, varicose veins, and chronic constipation. Clinically, the patient is feeling a bit better today. No new labs today. The patient saturations are in the mid to high 90s on 2 L nasal cannula. Chest x-ray from yesterday, has been reviewed. Progress note dated 11/13/2020. 85-year-old male, again seen in room 482. He initially presented to the emergency department at [facility]. He was diagnosed with bilateral pneumonia, and tested positive for coronavirus infection. The patient has a history of diabetes mellitus, gastroesophageal reflux disease, hypertension, myocardial infarction, pneumonia, varicose veins, and chronic constipation. The patient was on 2-3 L of nasal oxygen. He looked pretty stable but unfortunately, when he got up to go to the bathroom, his saturations dropped into the 70s. We thought he might be a candidate to be discharged. He may have to wait another day or 2. Today's d-dimer was 2.13. Chest x-ray shows continued peripheral and basilar consolidation, compatible with COVID pneumonia. Objective - Vital Signs Vital signs: Vital Signs Temp 97.6 F 11/13/20 06:14 Pulse 48 L 11/13/20 06:14 Resp 18 11/13/20 02:00 BP 171/77 11/13/20 06:14 Pulse Ox 96 11/13/20 06:14 Intake & Output 11/12/20 11/13/20 11/13/20 18:59 06:59 18:59 Intake Total 1340 1080 Balance 1340 1080 Intake: Oral 1340 1080 Other: Voiding Method Toilet # Voids 4 - Exam No acute distress, oriented 3. The patient is currently on 3 L, with a saturation of 96 %. HEENT examination is grossly unremarkable. Neck supple. Full range of motion. No adenopathy thyromegaly or neck vein distention. Cardiovascular examination reveals regular rhythm rate. S1-S2 normal. No S3 or S4. No discernible murmur noted. Heart sounds are distant. Heart rate 48 bpm. Lungs reveal diffuse bilateral rhonchi and crackles. Breath sounds equal. No wheezes. Abdomen soft bowel sounds are heard. No masses or tenderness. Extremities are intact. No cyanosis clubbing or edema. Skin is without rash or lesion. Neurologic examination is brief but nonfocal. - Labs CBC & Chem 7: 11/10/20 14:39 11/11/20 05:31 Labs: Abnormal Lab Results - Last 24 Hours (Table) 11/12/20 11/12/20 11/12/20 Range/Units 11:35 16:53 20:38 D-Dimer (<0.60) mg/L FEU POC Glucose (mg/dL) 151 H 238 H 319 H (75-99) mg/dL 11/13/20 11/13/20 11/13/20 Range/Units 03:16 05:46 07:23 D-Dimer 2.13 H (<0.60) mg/L FEU POC Glucose (mg/dL) 112 H 70 L (75-99) mg/dL Microbiology - Last 24 Hours (Table) 11/12/20 09:21 Gram Stain - Preliminary Sputum Sputum Culture - Preliminary 11/10/20 15:10 Blood Culture - Preliminary Blood No Growth after 48 hours 11/10/20 15:00 Blood Culture - Preliminary Blood No Growth after 48 hours Assessment and Plan Assessment: Acute hypoxemic respiratory failure, secondary to coronavirus/COVID 19 pneumonia. History of diabetes mellitus. History of gastroesophageal reflux disease. History of hypertension. Coronary artery disease, with multiple stent placements. History of hyperlipidemia. History of myocardial infarction. History of varicose veins. History of chronic constipation. Plan: Plan dated 11/11/2020. Currently, the patient is on Rocephin and Zithromax. If not or ready done, a pro-calcitonin level should be done. Also, the patient is on Decadron, 6 mg a day, and Lovenox 40 mg subcu daily. The patient is beyond the window for REM. The patient is not sick enough to receive TOCI. The patient is on vitamin C, vitamin D3, and zinc. Additional recommendations and suggestions are forthcoming. We'll continue to follow the patient make recommendations where appropriate. Plan dated 11/12/2020. Currently, the patient remains on this, and Lovenox is also receiving vitamins in the form of a week, zinc, and vitamin C. The patient remains on albuterol inhaler. Pro-calcitonin level is 0.28. Additional recommendations and suggesti ons are forthcoming. We will continue to follow make recommendations where appropriate. Clinically, the patient is doing better. Discharge planning underway. Plan dated 11/13/2020. We are hoping, that this patient might be ready to go home. Unfortunately, when he got up to go to the bathroom, his saturations dropped into the 70s. The patient is not quite ready for discharge. The patient will continue on his current medications. Additional recommendations and suggestions are forthcoming. We will continue to follow this patient. The patient currently is on Lovenox, vitamins, and albuterol inhaler. He is also on Decadron, 6 mg a day. Prognosis is guarded. Chest x-ray, and medications are all reviewed. Time with Patient: Less than 30
[2020-11-13 11:40] LABS: Glucose,Whole Blood 107 mg/dL (75-99)
[2020-11-13 12:13] LABS: C Reactive Protein 5.7 mg/dL (0.0-0.8)
--- NOTE | 2020-11-13 14:33 | P.PN ---
Subjective Progress Note Date: 11/13/20 Patient is an 85-year-old male was transferred from [facility] after he presented there with shortness of breath has been going on for about a week. Patient had a fever as well. Patient did receive Covid 19 vaccine. Covid 19 that was done at [facility] was negative although Covid 19 was repeated here because of the bilateral pneumonia with came back positive. Patient received Covid 19 vaccine in month of May. Patient was complaining of cough was also having some generalized body aches during last week. We'll obtain LDH, d-dimer, pro-calcitonin, pulmonary consultation. Patient is requiring 4 L of oxygen this time. Patient usually doesn't use oxygen at home. 11/11/2020 Patient's inflammatory markers a are elevated. Patient blood glucose is still elevated because of his increasing the dose of long-acting insulin to 30 units from 25 units. Patient is receiving Decadron. There is no evidence of bacterial pneumonia at this time, antibodies will be discontinued awaiting pro- calcitonin levels. Patient is feeling bit better patient is presently on 3 L of oxygen was on 5 L oxygen yesterday. 11/12/2020 Patient does have improvement in his respiratory status presently requiring 2 L of oxygen patient was complaining of dysphagia because of which speech therapy will evaluate the patient. Patient is bradycardic, discontinued and atenolol increase the dose of amlodipine. Patient blood pressure is still bit higher. 11/13/2020 Patient was evaluated today at the bedside. Patient states that he is short of breath with activity, he was found to be 76% on room air after using the restroom. Patient was placed on a 10 L high flow nasal cannula, can titrate oxygen as needed. Patient denies any chest pain, reports dry cough. She denies abdominal pain, nausea. Reports diarrhea. Patient states that he has does have a fair appetite and he is able to tolerate an oral diet the same. Patient is being followed closely by pulmonary services. Patient will continue on Decadron, vitamins, Lovenox for DVT prophylaxis, albuterol inhaler. Patient states that his immediate family had all tested for positive for COVID at this time as well. Additional vital signs included temperature of 96.5 axillary, heart rate 54, blood pressure 123/63, 86% on 5 L nasal cannula. Continue current blood pressure medications. Encourage incentive spirometer. Speech therapy was performed, recommended regular diet with thin liquids, sitting up or 90. Patient will follow-up with GI on an outpatient basis for possible esophageal dysfunction, suspect CP spasming), ROS: Constitutional: Denied any fatigue denied any fever. Cardio vascular: denied any chest pain, palpitations Gastrointestinal denied any nausea vomiting Pulmonary: Denied any shortness of breath cough Neurologic denied any new focal deficits All inpatient medications were reviewed and appropriate changes in these medications as dictated in the interval history and assessment and plan. PHYSICAL EXAMINATION: GENERAL: The patient is alert and oriented x3, not in any acute distress. Well developed, well nourished. HEENT: Pupils are round and equally reacting to light. EOMI. No scleral icterus. No conjunctival pallor. Normocephalic, atraumatic. No pharyngeal erythema. No thyromegaly. CARDIOVASCULAR: S1 and S2 present. No murmurs, rubs, or gallops. PULMONARY: Chest is clear to auscultation, no wheezing or crackles. ABDOMEN: Soft, nontender, nondistended, normoactive bowel sounds. No palpable organomegaly. MUSCULOSKELETAL: No joint swelling or deformity. EXTREMITIES: No cyanosis, clubbing, or pedal edema. NEUROLOGICAL: Gross neurological examination did not reveal any focal deficits. SKIN: No rashes. Assessment and plan -Covid 19 pneumonia patient has bilateral pneumonia: Patient will be reviewed on Decadron, pulmonary evaluated the patient, to be chest x-rays consistent with "pneumonia Patient will be reviewed on Covid 19 vitamins. Patient's d-dimer is around 3.4. pro- calcitonin is not consistent with bacterial pneumonia because of which I'm increasing the dose of Lovenox twice a day. -Bradycardia: Beta db is being discontinued patient is asymptomatic at this time -Type 2 diabetes mellitus: Uncontrolled elevated secondary to systemic steroids, increasing the dose of long-acting insulin as mentioned above -Gastro-Esophageal reflux disease -Hypertension -Coronary artery disease disease with stents in the past -For above-mentioned chronic medical problems his home medications will be resumed once verified. DVT prophylaxis: Lovenox Patient's oxygen saturation today is 86% on a 5 L nasal cannula, desatted with activity. Remains in sinus bradycardia, beta db has been discontinued at this time. Patient is being followed by pulmonary services, continue with albuterol, dexamethasone. Patient is on Lovenox for VT prophylaxis related to Covid 19 pneumonia. Inflammatory markers remain elevated, continue to monitor trends. Continue to wean O2 as tolerated, encourage IS. Objective - Vital Signs Vital signs: Vital Signs Temp 96.5 F L 11/13/20 10:50 Pulse 54 L 11/13/20 10:50 Resp 24 11/13/20 10:50 BP 123/63 11/13/20 10:50 Pulse Ox 86 L 11/13/20 10:50 Intake & Output 11/12/20 11/13/20 11/13/20 18:59 06:59 18:59 Intake Total 1340 1080 Balance 1340 1080 Intake: Oral 1340 1080 Other: Voiding Method Toilet # Voids 4 - Labs CBC & Chem 7: 11/10/20 14:39 11/11/20 05:31 Labs: Abnormal Lab Results - Last 24 Hours (Table) 11/12/20 11/12/20 11/12/20 Range/Units 11:35 16:53 20:38 D-Dimer (<0.60) mg/L FEU POC Glucose (mg/dL) 151 H 238 H 319 H (75-99) mg/dL 11/13/20 11/13/20 11/13/20 Range/Units 03:16 05:46 07:23 D-Dimer 2.13 H (<0.60) mg/L FEU POC Glucose (mg/dL) 112 H 70 L (75-99) mg/dL Microbiology - Last 24 Hours (Table) 11/12/20 09:21 Gram Stain - Preliminary Sputum Sputum Culture - Preliminary 11/10/20 15:10 Blood Culture - Preliminary Blood No Growth after 48 hours 11/10/20 15:00 Blood Culture - Preliminary Blood No Growth after 48 hours Assessment and Plan Time with Patient: Greater than 30
[2020-11-13 16:51] LABS: Glucose,Whole Blood 264 mg/dL (75-99)
[2020-11-13 21:03] LABS: Glucose,Whole Blood 227 mg/dL (75-99)
[2020-11-14 02:28] LABS: Glucose,Whole Blood 149 mg/dL (75-99)
[2020-11-14 07:25] LABS: Glucose,Whole Blood 105 mg/dL (75-99)
[2020-11-14] MEDS: INSULIN DETEMIR (LEVEMIR) 100 UNIT/ML SYR SQ SCH ×2 (08:17→17:09)
[2020-11-14] MEDS: INSULIN ASPART (NovoLOG) 100 UNIT/ML VIAL SQ SCH ×4 (08:17→21:43)
[2020-11-14] MEDS: FAMOTIDINE 20 MG TAB PO SCH ×2 (08:18→21:43)
[2020-11-14] MEDS: ASCORBIC ACID 500 MG TAB PO SCH ×2 (08:18→21:44)
[2020-11-14] MEDS: ENOXAPARIN 40 MG/0.4 ML SYRINGE SQ SCH (08:18)
[2020-11-14] MEDS: ZINC SULFATE 220 MG CAP PO SCH (08:18)
[2020-11-14] MEDS: CHOLECALCIFEROL 25 MCG (1000 IU) TABLET PO SCH (08:18)
[2020-11-14] MEDS: amLODIPine 10 MG TAB PO SCH (08:18)
[2020-11-14] MEDS: dexAMETHasone 2 MG TAB PO SCH (08:18)
[2020-11-14] MEDS: GLIMEPIRIDE 2 MG TAB PO SCH ×2 (08:18→21:43)
[2020-11-14 10:21] LABS: HCT 39.5 % (39.0-53.0); HGB 12.6 gm/dL (13.0-17.5); MCH 29.5 pg (25.0-35.0); MCV 92.1 fL (80.0-100.0); Mean Platelet Volume 9.4; Platelet Count 273 k/uL (150-450); RBC 4.29 m/uL (4.30-5.90); RDW 12.7 % (11.5-15.5); WBC 13.3 k/uL (3.8-10.6)
[2020-11-14 10:38] LABS: African American GFR (CKD) 83 (>60 ml/min/1.73 sqM); Anion Gap 8 mmol/L; Blood Urea Nitrogen 32 mg/dL (9-20); Calcium 9.1 mg/dL (8.4-10.2); Carbon Dioxide 24 mmol/L (22-30); Chloride 101 mmol/L (98-107); Glucose 144 mg/dL (74-99); Non-African American GFR(CKD) 72 (>60 ml/min/1.73 sqM); Potassium 5.1 mmol/L (3.5-5.1); Sodium 133 mmol/L (137-145)
[2020-11-14] MEDS: APIXABAN 5 MG TAB PO SCH ×2 (11:09→21:42)
[2020-11-14] MEDS: LOSARTAN 50 MG TAB PO SCH (11:09)
--- NOTE | 2020-11-14 11:12 | P.PN ---
Subjective Progress Note Date: 11/14/20 Principal diagnosis: Shortness of breath. Pulmonary/critical care consultation dated 11/11/2020. 85-year-old male, who presents to the emergency department via EMS, from [facility]. The patient states that he has not been feeling well for at least 8-10 days and may be a bit longer. His complaints include fatigue, shortness of breath, cough, and generally just not feeling well. He apparently saw his primary care provider, and was placed on Augmentin. At that point, things got worse, and he went to the emergency department at [facility] when he was diagnosed as having bilateral pneumonia. He was started on IV antibiotics and requested transfer to [facility]. The patient did test positive for coronavirus infection although his initial test was negative. The patient has a history of diabetes mellitus, GERD, hypertension, myocardial infarction, pneumonia, varicose veins, and chronic constipation. He also has a history of CAD, with previous heart catheterization and stent placement. Lab data includes a white count of 9.6, hemoglobin 12.8, hematocrit 39.6, and a platelet count of 275,000. D-dimer was 3.50. Sodium 136, potassium 4.7, chlorides 105, CO2 20, anion gap 11, BUN 19, and creatinine 0.97. Coronavirus testing here was positive. Chest x-ray shows diffuse bilateral airspace disease. Progress note dated 11/12/2020. 85-year-old male, who presents to the emergency department, from [facility]. The patient was diagnosed with bilateral pneumonia, and tested positive for coronavirus infection. The patient does have a history of diabetes mellitus, GERD, hypertension, myocardial infarction, pneumonia, varicose veins, and chronic constipation. Clinically, the patient is feeling a bit better today. No new labs today. The patient saturations are in the mid to high 90s on 2 L nasal cannula. Chest x-ray from yesterday, has been reviewed. Progress note dated 11/13/2020. 85-year-old male, again seen in room 482. He initially presented to the emergency department at [facility]. He was diagnosed with bilateral pneumonia, and tested positive for coronavirus infection. The patient has a history of diabetes mellitus, gastroesophageal reflux disease, hypertension, myocardial infarction, pneumonia, varicose veins, and chronic constipation. The patient was on 2-3 L of nasal oxygen. He looked pretty stable but unfortunately, when he got up to go to the bathroom, his saturations dropped into the 70s. We thought he might be a candidate to be discharged. He may have to wait another day or 2. Today's d-dimer was 2.13. Chest x-ray shows continued peripheral and basilar consolidation, compatible with COVID pneumonia. Progress note dated 11/14/2020. 85-year-old male seen again in room 482. Today, he is resting comfortably. He feels better today. He was on 6 L nasal cannula, and saturations are 100%. We turned him down to 3 L. Saturations are 95-96%. The patient was diagnosed with bilateral pneumonia secondary to coronavirus infection. He is feeling better. In addition, he has a history of diabetes, GERD, hypertension, myocardial infarction, pneumonia, varicose veins, and chronic constipation. Labs today show a white count of 13.3, hemoglobin 12.6, hematocrit 39.5, and a platelet count of 273,000. Sodium 133, potassium 5.1, chlorides 101, CO2 24, anion gap 8 , BUN 32, and creatinine 0.98. Chest x-ray dated November 13, is reviewed. Objective - Vital Signs Vital signs: Vital Signs Temp 97.8 F 11/14/20 06:13 Pulse 42 L 11/14/20 06:13 Resp 18 11/14/20 06:13 BP 157/73 11/14/20 06:13 Pulse Ox 94 L 11/14/20 09:18 Intake & Output 11/13/20 11/14/20 11/14/20 18:59 06:59 18:59 Output Total 500 Balance -500 Output: Urine 500 Other: # Voids 800 - Exam No acute distress, oriented 3. The patient is currently on 3 L, with a saturation of 96 %. HEENT examination is grossly unremarkable. Neck supple. Full range of motion. No adenopathy thyromegaly or neck vein distention. Cardiovascular examination reveals regular rhythm rate. S1-S2 normal. No S3 or S4. No discernible murmur noted. Heart sounds are distant. Heart rate 50 bpm. Lungs reveal diffuse bilateral rhonchi and crackles. Breath sounds equal. No wheezes. Abdomen soft bowel sounds are heard. No masses or tenderness. Extremities are intact. No cyanosis clubbing or edema. Skin is without rash or lesion. Neurologic examination is brief but nonfocal. - Labs CBC & Chem 7: 11/14/20 10:03 11/14/20 10:03 Labs: Abnormal Lab Results - Last 24 Hours (Table) 11/13/20 11/13/20 11/13/20 Range/Units 05:46 11:39 16:50 WBC (3.8-10.6) k/uL RBC (4.30-5.90) m/uL Hgb (13.0-17.5) gm/dL Sodium (137-145) mmol/L BUN (9-20) mg/dL Glucose (74-99) mg/dL POC Glucose (mg/dL) 107 H 264 H (75-99) mg/dL Lactate Dehydrogenase 276 H (120-246) U/L C-Reactive Protein 5.7 H (0.0-0.8) mg/dL 11/13/20 11/14/20 11/14/20 Range/Units 21:01 02:09 07:24 WBC (3.8-10.6) k/uL RBC (4.30-5.90) m/uL Hgb (13.0-17.5) gm/dL Sodium (137-145) mmol/L BUN (9-20) mg/dL Glucose (74-99) mg/dL POC Glucose (mg/dL) 227 H 149 H 105 H (75-99) mg/dL Lactate Dehydrogenase (120-246) U/L C-Reactive Protein (0.0-0.8) mg/dL 11/14/20 11/14/20 Range/Units 10:03 10:03 WBC 13.3 H (3.8-10.6) k/uL RBC 4.29 L (4.30-5.90) m/uL Hgb 12.6 L (13.0-17.5) gm/dL Sodium 133 L (137-145) mmol/L BUN 32 H (9-20) mg/dL Glucose 144 H (74-99) mg/dL POC Glucose (mg/dL) (75-99) mg/dL Lactate Dehydrogenase (120-246) U/L C-Reactive Protein (0.0-0.8) mg/dL Microbiology - Last 24 Hours (Table) 11/10/20 15:10 Blood Culture - Preliminary Blood No Growth after 72 hours 11/10/20 15:00 Blood Culture - Preliminary Blood No Growth after 72 hours 11/12/20 09:21 Gram Stain - Preliminary Sputum Sputum Culture - Preliminary Assessment and Plan Assessment: Acute hypoxemic respiratory failure, secondary to coronavirus/COVID 19 pneumonia. History of diabetes mellitus. History of gastroesophageal reflux disease. History of hypertension. Coronary artery disease, with multiple stent placements. History of hyperlipidemia. History of myocardial infarction. History of varicose veins. History of chronic constipation. Plan: Plan dated 11/11/2020. Currently, the patient is on Rocephin and Zithromax. If not or ready done, a pro-calcitonin level should be done. Also, the patient is on Decadron, 6 mg a day, and Lovenox 40 mg subcu daily. The patient is beyond the window for REM. The patient is not sick enough to receive TOCI. The patient is on vitamin C, v itamin D3, and zinc. Additional recommendations and suggestions are forthcoming. We'll continue to follow the patient make recommendations where appropriate. Plan dated 11/12/2020. Currently, the patient remains on this, and Lovenox is also receiving vitamins in the form of a week, zinc, and vitamin C. The patient remains on albuterol inhaler. Pro-calcitonin level is 0.28. Additional recommendations and suggestions are forthcoming. We will continue to follow make recommendations where appropriate. Clinically, the patient is doing better. Discharge planning underway. Plan dated 11/13/2020. We are hoping, that this patient might be ready to go home. Unfortunately, when he got up to go to the bathroom, his saturations dropped into the 70s. The patient is not quite ready for discharge. The patient will continue on his current medications. Additional recommendations and suggestions are forthcoming. We will continue to follow this patient. The patient currently is on Lovenox, vitamins, and albuterol inhaler. He is also on Decadron, 6 mg a day. Prognosis is guarded. Chest x-ray, and medications are all reviewed. Plan dated 11/14/2020. The patient's oxygen was turned down from 6 L down to 3 L. Saturations are excellent at 95%. From the pulmonary standpoint, the patient remains on albuterol inhaler, vitamin C, vitamin D3, Decadron, Eliquis, and zinc. We will continue to follow the patient. The patient is getting close to discharge. No additional recommendations are made. Prognosis is guarded. Time with Patient: Less than 30
[2020-11-14 12:21] LABS: Glucose,Whole Blood 98 mg/dL (75-99)
--- NOTE | 2020-11-14 15:06 | P.PN ---
Subjective Progress Note Date: 11/14/20 Patient is an 85-year-old male was transferred from [facility] after he presented there with shortness of breath has been going on for about a week. Patient had a fever as well. Patient did receive Covid 19 vaccine. Covid 19 that was done at [facility] was negative although Covid 19 was repeated here because of the bilateral pneumonia with came back positive. Patient received Covid 19 vaccine in month of May. Patient was complaining of cough was also having some generalized body aches during last week. We'll obtain LDH, d-dimer, pro-calcitonin, pulmonary consultation. Patient is requiring 4 L of oxygen this time. Patient usually doesn't use oxygen at home. 11/11/2020 Patient's inflammatory markers a are elevated. Patient blood glucose is still elevated because of his increasing the dose of long-acting insulin to 30 units from 25 units. Patient is receiving Decadron. There is no evidence of bacterial pneumonia at this time, antibodies will be discontinued awaiting pro- calcitonin levels. Patient is feeling bit better patient is presently on 3 L of oxygen was on 5 L oxygen yesterday. 11/12/2020 Patient does have improvement in his respiratory status presently requiring 2 L of oxygen patient was complaining of dysphagia because of which speech therapy will evaluate the patient. Patient is bradycardic, discontinued and atenolol increase the dose of amlodipine. Patient blood pressure is still bit higher. 11/13/2020 Patient was evaluated today at the bedside. Patient states that he is short of breath with activity, he was found to be 76% on room air after using the restroom. Patient was placed on a 10 L high flow nasal cannula, can titrate oxygen as needed. Patient denies any chest pain, reports dry cough. She denies abdominal pain, nausea. Reports diarrhea. Patient states that he has does have a fair appetite and he is able to tolerate an oral diet the same. Patient is being followed closely by pulmonary services. Patient will continue on Decadron, vitamins, Lovenox for DVT prophylaxis, albuterol inhaler. Patient states that his immediate family had all tested for positive for COVID at this time as well. Additional vital signs included temperature of 96.5 axillary, heart rate 54, blood pressure 123/63, 86% on 5 L nasal cannula. Continue current blood pressure medications. Encourage incentive spirometer. Speech therapy was performed, recommended regular diet with thin liquids, sitting up or 90. Patient will follow-up with GI on an outpatient basis for possible esophageal dysfunction, suspect CP spasming), 11/14/2020 Patient is resting in bed comfortably, on 94% oxygenation on 2 L nasal cannula at the time of my examination. Patient continues to desat with activity. Patient's heart rate is sinus bradycardia, 55, EKG ordered today. Blood pressure 125/64, temp 97.5. Patient continues on albuterol inhaler, dexamethasone, vitamins for Covid 19 pneumonia. Patient does have a history of proximal atrial fibrillation, eliquis has been resumed at this time. Patient's amiodarone, metoprolol and place on hold due to low heart rate. Patient denies any chest pain, reports intermittent cough, exertional dyspnea. Patient denies abdominal pain, nausea. He reports intermittent diarrhea. Blood cultures have remained negative. Patient's sputum culture did reveal a yeast species as preliminary. Pending finalized cultures. Patient is tolerating a regular diet at this time. ROS: Constitutional: Denied any fatigue denied any fever. Cardio vascular: denied any chest pain, palpitations Gastrointestinal denied any nausea vomiting, reports diarrhea Pulmonary: Reports cough, exertional dyspnea Neurologic denied any new focal deficits All inpatient medications were reviewed and appropriate changes in these medications as dictated in the interval history and assessment and plan. PHYSICAL EXAMINATION: GENERAL: The patient is alert and oriented x3, not in any acute distress. Well developed, well nourished. HEENT: Pupils are round and equally reacting to light. EOMI. No scleral icterus. No conjunctival pallor. Normocephalic, atraumatic. No pharyngeal erythema. No thyromegaly. CARDIOVASCULAR: S1 and S2 present. No murmurs, rubs, or gallops. PULMONARY: Chest is clear to auscultation, no wheezing or crackles. ABDOMEN: Soft, nontender, nondistended, normoactive bowel sounds. No palpable or ganomegaly. MUSCULOSKELETAL: No joint swelling or deformity. EXTREMITIES: No cyanosis, clubbing, or pedal edema. NEUROLOGICAL: Gross neurological examination did not reveal any focal deficits. SKIN: No rashes. Assessment and plan -Covid 19 pneumonia patient has bilateral pneumonia: Patient will be reviewed on Decadron, pulmonary evaluated the patient, to be chest x-rays consistent with "pneumonia Patient will be reviewed on Covid 19 vitamins. Patient's d-dimer is around 3.4. pro- calcitonin is not consistent with bacterial pneumonia. -Bradycardia: Beta db is being discontinued patient is asymptomatic at this time -Type 2 diabetes mellitus: Uncontrolled elevated secondary to systemic steroids, increasing the dose of long-acting insulin as mentioned above -Gastro-Esophageal reflux disease -Hypertension -Coronary artery disease disease with stents in the past Paroxysmal atrial fibrillation, resumed eliquis, amiodarone on hold, patient remains in sinus bradycardia asymptomatic -For above-mentioned chronic medical problems his home medications will be resumed once verified. DVT prophylaxis: eliquis Oxygen saturation has improved today 96% on 2 L, continues to desat with activity however. Patient is being followed by pulmonary services, continue with albuterol, dexamethasone. Inflammatory markers remain elevated, continue to monitor trends. Continue to wean O2 as tolerated, encourage IS. Objective - Vital Signs Vital signs: Vital Signs Temp 97.5 F L 11/14/20 11:34 Pulse 49 L 11/14/20 11:34 Resp 18 11/14/20 11:34 BP 134/71 11/14/20 11:34 Pulse Ox 95 11/14/20 11:34 Intake & Output 11/13/20 11/14/20 11/14/20 18:59 06:59 18:59 Output Total 500 Balance -500 Output: Urine 500 Other: # Voids 800 - Labs CBC & Chem 7: 11/14/20 10:03 11/14/20 10:03 Labs: Abnormal Lab Results - Last 24 Hours (Table) 11/13/20 11/13/20 11/14/20 Range/Units 16:50 21:01 02:09 WBC (3.8-10.6) k/uL RBC (4.30-5.90) m/uL Hgb (13.0-17.5) gm/dL Sodium (137-145) mmol/L BUN (9-20) mg/dL Glucose (74-99) mg/dL POC Glucose (mg/dL) 264 H 227 H 149 H (75-99) mg/dL 11/14/20 11/14/20 11/14/20 Range/Units 07:24 10:03 10:03 WBC 13.3 H (3.8-10.6) k/uL RBC 4.29 L (4.30-5.90) m/uL Hgb 12.6 L (13.0-17.5) gm/dL Sodium 133 L (137-145) mmol/L BUN 32 H (9-20) mg/dL Glucose 144 H (74-99) mg/dL POC Glucose (mg/dL) 105 H (75-99) mg/dL Microbiology - Last 24 Hours (Table) 11/10/20 15:10 Blood Culture - Preliminary Blood No Growth after 72 hours 11/10/20 15:00 Blood Culture - Preliminary Blood No Growth after 72 hours 11/12/20 09:21 Gram Stain - Preliminary Sputum Sputum Culture - Preliminary Assessment and Plan Time with Patient: Greater than 30
[2020-11-14 16:59] LABS: Glucose,Whole Blood 218 mg/dL (75-99)
[2020-11-14] MEDS: PANTOPRAZOLE 40 MG TABLET PO SCH (17:09)
[2020-11-14] MEDS: NYSTATIN 100,000 UNIT/ML SUSP 500,000 UNIT/5 ML CUP PO SCH ×2 (18:28→21:43)
[2020-11-14 20:49] LABS: Glucose,Whole Blood 286 mg/dL (75-99)
[2020-11-14] MEDS: GABAPENTIN 300 MG CAP PO SCH (21:43)
[2020-11-14] MEDS: EXENATIDE 10 MCG/0.04 ML SQ SCH (21:44)
[2020-11-15 03:27] LABS: Glucose,Whole Blood 129 mg/dL (75-99)
[2020-11-15 07:35] LABS: Glucose,Whole Blood 138 mg/dL (75-99)
[2020-11-15] MEDS: EXENATIDE 10 MCG/0.04 ML SQ SCH ×2 (08:05→20:49)
[2020-11-15] MEDS: GLIMEPIRIDE 2 MG TAB PO SCH ×2 (08:20→20:48)
[2020-11-15] MEDS: ASPIRIN 81 MG PO SCH ×2 (08:20→08:30)
[2020-11-15] MEDS: dexAMETHasone 2 MG TAB PO SCH (08:20)
[2020-11-15] MEDS: CHOLECALCIFEROL 25 MCG (1000 IU) TABLET PO SCH (08:20)
[2020-11-15] MEDS: TAMSULOSIN 0.4 MG CAP.ER.24H PO SCH ×2 (08:20)
[2020-11-15] MEDS: PANTOPRAZOLE 40 MG TABLET PO SCH ×2 (08:20→17:01)
[2020-11-15] MEDS: LOSARTAN 50 MG TAB PO SCH (08:20)
[2020-11-15] MEDS: ZINC SULFATE 220 MG CAP PO SCH (08:20)
[2020-11-15] MEDS: APIXABAN 5 MG TAB PO SCH ×2 (08:20→20:37)
[2020-11-15] MEDS: FAMOTIDINE 20 MG TAB PO SCH ×2 (08:21→20:37)
[2020-11-15] MEDS: GABAPENTIN 300 MG CAP PO SCH ×2 (08:21→20:37)
[2020-11-15] MEDS: INSULIN ASPART (NovoLOG) 100 UNIT/ML VIAL SQ SCH ×5 (08:21→20:37)
[2020-11-15] MEDS: amLODIPine 10 MG TAB PO SCH (08:21)
[2020-11-15] MEDS: NYSTATIN 100,000 UNIT/ML SUSP 500,000 UNIT/5 ML CUP PO SCH ×4 (08:21→20:37)
[2020-11-15] MEDS: INSULIN DETEMIR (LEVEMIR) 100 UNIT/ML SYR SQ SCH ×2 (08:21→18:00)
[2020-11-15] MEDS: ASCORBIC ACID 500 MG TAB PO SCH ×2 (08:21→20:37)
[2020-11-15 08:40] LABS: HCT 42.5 % (39.0-53.0); HGB 13.9 gm/dL (13.0-17.5); MCH 30.1 pg (25.0-35.0); MCHC 32.6 g/dL (31.0-37.0); MCV 92.3 fL (80.0-100.0); Mean Platelet Volume 8.7; Platelet Count 323 k/uL (150-450); RBC 4.61 m/uL (4.30-5.90); RDW 12.9 % (11.5-15.5); WBC 19.3 k/uL (3.8-10.6)
--- NOTE | 2020-11-15 10:37 | P.DS ---
Providers Date of admission: 11/10/20 14:45 Attending physician: Kishan Sandy Consults: 11/10/20 17:39 Consult Physician Routine Consulting Provider: Florentino Conley Consult Reason/Comments: Covid 19 Do you want consulting provider notified?: Yes Primary care physician: Madeleine De Dios MD Hospital Course: Patient is an 85-year-old male was transferred from [facility] after he presented there with shortness of breath has been going on for about a week. Patient had a fever as well. Patient did receive Covid 19 vaccine. Covid 19 that was done at [facility] was negative although Covid 19 was repeated here because of the bilateral pneumonia with came back positive. Patient received Covid 19 vaccine in month of May. Patient was complaining of cough was also having some generalized body aches during last week. We'll obtain LDH, d-dimer, pro-calcitonin, pulmonary consultation. Patient is requiring 4 L of oxygen this time. Patient usually doesn't use oxygen at home. 11/11/2020 Patient's inflammatory markers a are elevated. Patient blood glucose is still elevated because of his increasing the dose of long-acting insulin to 30 units from 25 units. Patient is receiving Decadron. There is no evidence of bacterial pneumonia at this time, antibodies will be discontinued awaiting pro- calcitonin levels. Patient is feeling bit better patient is presently on 3 L of oxygen was on 5 L oxygen yesterday. 11/12/2020 Patient does have improvement in his respiratory status presently requiring 2 L of oxygen patient was complaining of dysphagia because of which speech therapy will evaluate the patient. Patient is bradycardic, discontinued and atenolol increase the dose of amlodipine. Patient blood pressure is still bit higher. 11/13/2020 Patient was evaluated today at the bedside. Patient states that he is short of breath with activity, he was found to be 76% on room air after using the restroom. Patient was placed on a 10 L high flow nasal cannula, can titrate oxygen as needed. Patient denies any chest pain, reports dry cough. She denies abdominal pain, nausea. Reports diarrhea. Patient states that he has does have a fair appetite and he is able to tolerate an oral diet the same. Patient is being followed closely by pulmonary services. Patient will continue on Decadron, vitamins, Lovenox for DVT prophylaxis, albuterol inhaler. Patient states that his immediate family had all tested for positive for COVID at this time as well. Additional vital signs included temperature of 96.5 axillary, heart rate 54, blood pressure 123/63, 86% on 5 L nasal cannula. Continue current blood pressure medications. Encourage incentive spirometer. Speech therapy was performed, recommended regular diet with thin liquids, sitting up or 90. Patient will follow-up with GI on an outpatient basis for possible esophageal dysfunction, suspect CP spasming), 11/14/2020 Patient is resting in bed comfortably, on 94% oxygenation on 2 L nasal cannula at the time of my examination. Patient continues to desat with activity. Patient's heart rate is sinus bradycardia, 55, EKG ordered today. Blood pressure 125/64, temp 97.5. Patient continues on albuterol inhaler, dexamethasone, vitamins for Covid 19 pneumonia. Patient does have a history of proximal atrial fibrillation, eliquis has been resumed at this time. Patient's amiodarone, metoprolol and place on hold due to low heart rate. Patient denies any chest pain, reports intermittent cough, exertional dyspnea. Patient denies abdominal pain, nausea. He reports intermittent diarrhea. Blood cultures have remained negative. Patient's sputum culture did reveal a yeast species as preliminary. Pending finalized cultures. Patient is tolerating a regular diet at this time. 11/15/2020 Patient has significant clinical improvement. Patient is on 2 L of oxygen saturating at 97% will ambulate the patient if the oxygen saturations are okay, patient will be discharged today. Patient the blood sugars are well controlled presently although his long-acting insulin dose was increased because of the Decadron.. Patient will continue this dose of the insulin until he is done with the Decadron. After that patient will resume on previous home dose of Lantus. Patient was also started on sulfonylurea which she'll continue until completion of Decadron. PHYSICAL EXAMINATION: GENERAL: The patient is alert and oriented x3, not in any acute distress. Well developed, well nourished. HEENT: Pupils are round and equally reacting to light. EOMI. No scleral icterus. No conjunctival pallor. Normocephalic, atraumatic. No pharyngeal erythema. No thyromegaly. CARDIOVASCULAR: S1 and S2 present. No murmurs, rubs, or gallops. PULMONARY: Chest is clear to auscultation, no wheezing or crackles. ABDOMEN: Soft, nontender, nondistended, normoactive bowel sounds. No palpable organomegaly. MUSCULOSKELETAL: No joint swelling or deformity. EXTREMITIES: No cyanosis, clubbing, or pedal edema. NEUROLOGICAL: Gross neurological examination did not reveal any focal deficits. SKIN: No rashes. Assessment and plan -Covid 19 pneumonia patient has bilateral pneumonia: Patient will be reviewed on Decadron, pulmonary evaluated the patient, to be chest x-rays consistent with "overweight pneumonia Patient will be reviewed on Covid 19 vitamins. Patient's d-dimer is around 3.4. pro- calcitonin is not consistent with bacterial pneumonia. Patient is saturating well today will be discharged. -Bradycardia: Supple beta db is being cut down to 25 mg and does have history of atrial fibrillation -Type 2 diabetes mellitus: Controlled increasing the dose of long-acting insulin as mentioned above -Gastro-Esophageal reflux disease -Hypertension -Coronary artery disease disease with stents in the past Paroxysmal atrial fibrillation, resumed eliquis, amiodarone on hold, patient beta db dose is being decreased -For above-mentioned chronic medical problems his home medications will be resumed once verified. DVT prophylaxis: eliquis Plan - Discharge Summary Discharge Rx Participant: No New Discharge Prescriptions: New dexAMETHasone ORAL [Hexadrol] 6 mg PO DAILY #5 day Nystatin 100,000 Unit/ml Susp [Mycostatin Oral Susp] 500,000 unit PO QID #250 ml amLODIPine [Norvasc] 10 mg PO QAM #30 tab Zinc Sulfate [Orazinc] 220 mg PO DAILY #20 cap Ascorbic Acid [Vitamin C] 500 mg PO BID #30 tab Insulin Detemir (Levemir) [Levemir] 25 unit SQ BID-W/MEALS syr Glimepiride [Amaryl] 2 mg PO BID #20 tab Continue Albuterol Inhaler [Ventolin Hfa Inhaler] 1 - 2 puff INHALATION RT-Q8H PRN PRN Reason: Shortness Of Breath Cholecalciferol (Vitamin D3) [Vitamin D3 (125 MCG = 5,000 IU)] 125 mcg PO Q7D Apixaban [Eliquis] 5 mg PO Q12H Loperamide HCl [Loperamide] 2 mg PO Q4-6H PRN PRN Reason: Diarrhea Gabapentin [Neurontin] 600 mg PO BID Losartan [Cozaar] 50 mg PO DAILY Cyanocobalamin (Vitamin B-12) [Vitamin B-12] 1,000 mcg PO DAILY Exenatide [Byetta] 10 mcg SQ BID Tamsulosin HCl [Flomax] 0.4 mg PO DAILY Pantoprazole [Protonix] 40 mg PO BID Benzonatate [Tessalon Perles] 100 mg PO TID PRN PRN Reason: Cough Changed Metoprolol Tartrate [Lopressor] 25 mg PO BID #0 Discontinued Insulin Glargine [Lantus] 17 unit SQ BID-W/MEALS Aspirin 162 mg PO DAILY Doxycycline Hyclate 100 mg PO Q12H Amoxic-Pot Clav 875-125Mg [Augmentin 875-125] 1 tab PO Q12H Loratadine [Claritin] 10 mg PO DAILY Furosemide [Lasix] 20 mg PO DAILY Amiodarone [Cordarone] 200 mg PO DAILY Spironolactone [Aldactone] 25 mg PO DAILY Discharge Medication List Albuterol Inhaler [Ventolin Hfa Inhaler] 1 - 2 puff INHALATION RT-Q8H PRN 11/10/20 [History] Apixaban [Eliquis] 5 mg PO Q12H 11/10/20 [History] Benzonatate [Tessalon Perles] 100 mg PO TID PRN 11/10/20 [History] Cholecalciferol (Vitamin D3) [Vitamin D3 (125 MCG = 5,000 IU)] 125 mcg PO Q7D 11/10/20 [History] Cyanocobalamin (Vitamin B-12) [Vitamin B-12] 1,000 mcg PO DAILY 11/10/20 [History] Exenatide [Byetta] 10 mcg SQ BID 11/10/20 [History] Gabapentin [Neurontin] 600 mg PO BID 11/10/20 [History] Loperamide HCl [Loperamide] 2 mg PO Q4-6H PRN 11/10/20 [History] Losartan [Cozaar] 50 mg PO DAILY 11/10/20 [History] Pantoprazole [Protonix] 40 mg PO BID 11/10/20 [History] Tamsulosin HCl [Flomax] 0.4 mg PO DAILY 11/10/20 [History] Ascorbic Acid [Vitamin C] 500 mg PO BID #30 tab 11/15/20 [Rx] Glimepiride [Amaryl] 2 mg PO BID #20 tab 11/15/20 [Rx] Insulin Detemir (Levemir) [Levemir] 25 unit SQ BID-W/MEALS syr 11/15/20 [Rx] Metoprolol Tartrate [Lopressor] 25 mg PO BID #0 11/15/20 [Rx] Nystatin 100,000 Unit/ml Susp [Mycostatin Oral Susp] 500,000 unit PO QID #250 ml 11/15/20 [Rx] Zinc Sulfate [Orazinc] 220 mg PO DAILY #20 cap 11/15/20 [Rx] amLODIPine [Norvasc] 10 mg PO QAM #30 tab 11/15/20 [Rx] dexAMETHasone ORAL [Hexadrol] 6 mg PO DAILY #5 day 11/15/20 [Rx] Follow up Appointment(s)/Referral(s): Miguel Lara DO [Doctor of Osteopathic Medicine] - 1 Week Madeleine De Dios MD [Primary Care Provider] - 1-2 days (Please call office for your appointment. Thank you.) Lux Roldan MD [STAFF PHYSICIAN] - 1 Week Discharge Disposition: HOME SELF-CARE
[2020-11-15 11:16] LABS: Glucose,Whole Blood 245 mg/dL (75-99)
[2020-11-15 12:16] LABS: African American GFR (CKD) 71.6 (60.0-200.0); Anion Gap 7.8 mmol/L (4.00-12.00); Calcium 8.9 mg/dL (8.7-10.3); Carbon Dioxide 27.2 mmol/L (21.6-31.8); Non-African American GFR(CKD) 61.8 (60.0-200.0); Potassium 5.1 mmol/L (3.5-5.5)
--- NOTE | 2020-11-15 13:10 | P.PN ---
Subjective Progress Note Date: 11/15/20 Principal diagnosis: COVID-19 pneumonia The patient is seen today 11/15/2020 in follow-up on the regular medical floor. He was admitted back on 11/11/2020 as a transfer from [facility] for bilateral pneumonia. He was found to be positive for COVID-19 despite having h ad vaccines back in May and June. Presently he is sitting up in bed. Awake and alert in no acute distress. Still short of breath with minimal activity. Continue O2 saturations in the mid 90s on 2 L/m per nasal cannula. He does drop to 86% with exercise on room air. He's been afebrile. B radycardic. Blood cultures reveal no growth. Sputum culture positive for yeast. White count 19.3. Hemoglobin 13.9. Sodium 136. Potassium 5.1. Creatinine 1.1. He remains on vitamin supplements, Decadron, anticoagulated with Eliquis. Objective - Vital Signs Vital signs: Vital Signs Temp 98.1 F 11/15/20 09:45 Pulse 50 L 11/15/20 09:45 Resp 18 11/15/20 09:45 BP 112/67 11/15/20 09:45 Pulse Ox 90 L 11/15/20 10:53 Intake & Output 11/14/20 11/15/20 11/15/20 18:59 06:59 18:59 Intake Total 1080 Output Total 1 Balance -1 1080 Intake: Oral 1080 Output: Stool 1 Other: # Voids 4 3 - Exam GENERAL EXAM: Alert, pleasant 85-year-old gentleman, on 2 L nasal cannula, fairly comfortable in no apparent distress. HEAD: Normocephalic. EYES: Normal reaction of pupils, equal size. NOSE: Clear with pink turbinates. THROAT: No erythema or exudates. NECK: No masses, no JVD. CHEST: No chest wall deformity. LUNGS: Equal air entry with crackles in the bilateral posterior bases. CVS: S1 and S2 normal with no audible murmur, regular rhythm. ABDOMEN: No hepatosplenomegaly, normal bowel sounds, no guarding or rigidity. SPINE: No scoliosis or deformity SKIN: No rashes CENTRAL NERVOUS SYSTEM: No focal deficits, tone is normal in all 4 extremities. EXTREMITIES: There is no peripheral edema. No clubbing, no cyanosis. Peripheral pulses are intact. - Labs CBC & Chem 7: 08/14/21 08:03 11/15/20 08:03 Labs: Abnormal Lab Results - Last 24 Hours (Table) 11/14/20 11/14/20 11/15/20 Range/Units 16:58 20:47 03:26 WBC (3.8-10.6) k/uL BUN (9.0-27.0) mg/dL BUN/Creatinine Ratio (12.00-20.00) Ratio POC Glucose (mg/dL) 218 H 286 H 129 H (75-99) mg/dL 11/15/20 11/15/20 11/15/20 Range/Units 07:34 08:03 08:03 WBC 19.3 H (3.8-10.6) k/uL BUN 33.0 H (9.0-27.0) mg/dL BUN/Creatinine Ratio 30.00 H (12.00-20.00) Ratio POC Glucose (mg/dL) 138 H (75-99) mg/dL 11/15/20 Range/Units 11:16 WBC (3.8-10.6) k/uL BUN (9.0-27.0) mg/dL BUN/Creatinine Ratio (12.00-20.00) Ratio POC Glucose (mg/dL) 245 H (75-99) mg/dL Microbiology - Last 24 Hours (Table) 11/10/20 15:10 Blood Culture - Preliminary Blood No Growth after 96 hours 11/10/20 15:00 Blood Culture - Preliminary Blood No Growth after 96 hours 11/12/20 09:21 Gram Stain - Preliminary Sputum Sputum Culture - Preliminary Yeast species Assessment and Plan Assessment: Acute hypoxemic respiratory failure, secondary to coronavirus/COVID 19 pneumonia. History of diabetes mellitus. History of gastroesophageal reflux disease. History of hypertension. Coronary artery disease, with multiple stent placements. History of hyperlipidemia. History of myocardial infarction. History of varicose veins. History of chronic constipation. Plan: The patient was seen and evaluated by Dr. Lara He is cleared for discharge from the pulmonary standpoint May require home oxygen Complete 10 days of Decadron Continue vitamin supplements I, the cosigning physician, performed a history & physical examination of the pa tient. Lungs sounds with crackles in the bilateral posterior bases Maintaining good O2 saturations in the 90s on 2 L/m per nasal cannula. I discussed the assessment and plan of care with my nurse practitioner, Faye Olivas. I attest to the above note as dictated by her.
[2020-11-15 16:47] LABS: Glucose,Whole Blood 311 mg/dL (75-99)
[2020-11-15 20:28] LABS: Glucose,Whole Blood 337 mg/dL (75-99)
[2020-11-16 06:57] LABS: Glucose,Whole Blood 148 mg/dL (75-99)
[2020-11-16] MEDS: INSULIN ASPART (NovoLOG) 100 UNIT/ML VIAL SQ SCH ×4 (07:33→21:25)
[2020-11-16] MEDS: EXENATIDE 10 MCG/0.04 ML SQ SCH ×2 (07:33→21:27)
[2020-11-16] MEDS: TAMSULOSIN 0.4 MG CAP.ER.24H PO SCH (07:34)
[2020-11-16] MEDS: ZINC SULFATE 220 MG CAP PO SCH (08:53)
[2020-11-16] MEDS: dexAMETHasone 2 MG TAB PO SCH (08:53)
[2020-11-16] MEDS: GLIMEPIRIDE 2 MG TAB PO SCH ×2 (08:54→21:25)
[2020-11-16] MEDS: INSULIN DETEMIR (LEVEMIR) 100 UNIT/ML SYR SQ SCH ×2 (08:54→17:06)
[2020-11-16] MEDS: APIXABAN 5 MG TAB PO SCH ×2 (08:54→21:24)
[2020-11-16] MEDS: LOSARTAN 50 MG TAB PO SCH (08:54)
[2020-11-16] MEDS: ASCORBIC ACID 500 MG TAB PO SCH ×2 (08:54→21:25)
[2020-11-16] MEDS: FAMOTIDINE 20 MG TAB PO SCH ×2 (08:54→21:24)
[2020-11-16] MEDS: amLODIPine 10 MG TAB PO SCH (08:54)
[2020-11-16] MEDS: PANTOPRAZOLE 40 MG TABLET PO SCH ×2 (08:54→17:06)
[2020-11-16] MEDS: CHOLECALCIFEROL 25 MCG (1000 IU) TABLET PO SCH (08:54)
[2020-11-16] MEDS: NYSTATIN 100,000 UNIT/ML SUSP 500,000 UNIT/5 ML CUP PO SCH ×4 (08:54→21:25)
[2020-11-16] MEDS: GABAPENTIN 300 MG CAP PO SCH ×2 (08:54→21:24)
--- NOTE | 2020-11-16 09:25 | XR ---
EXAMINATION TYPE: XR chest 1V portable DATE OF EXAM: 11/16/2020 COMPARISON: 11/13/2020 HISTORY: 85 years Male. STUDY INDICATION GIVEN: covid pneumonia . TECHNIQUE: AP upright portable chest radiograph FINDINGS AND IMPRESSION: Bilateral opacities decreased in the interval, likely on the basis of multifocal pneumonia with subse gmental atelectasis. There may be a trace right pleural effusion similar to prior study. No left pleural effusion or pneum othorax. Prominent cardiac silhouette suggests mild cardiomegaly. Without significant change. No acute osseous abnormality. Generalized osteopenia.
--- NOTE | 2020-11-16 09:35 | P.PN ---
Subjective Patient is an 85-year-old male was transferred from [facility] after he presented there with shortness of breath has been going on for about a week. Patient had a fever as well. Patient did receive Covid 19 vaccine. Covid 19 that was done at [facility] was negative although Covid 19 was repeated here because of the bilateral pneumonia with came back positive. Patient received Covid 19 vaccine in month of May. Patient was complaining of cough was also having some generalized body aches during last week. We'll obtain LDH, d-dimer, pro-calcitonin, pulmonary consultation. Patient is requiring 4 L of oxygen this time. Patient usually doesn't use oxygen at home. 11/11/2020 Patient's inflammatory markers a are elevated. Patient blood glucose is still elevated because of his increasing the dose of long-acting insulin to 30 units from 25 units. Patient is receiving Decadron. There is no evidence of bacteri al pneumonia at this time, antibodies will be discontinued awaiting pro- calcitonin levels. Patient is feeling bit better patient is presently on 3 L of oxygen was on 5 L oxygen yesterday. 11/12/2020 Patient does have improvement in his respiratory status presently requiring 2 L of oxygen patient was complaining of dysphagia because of which speech therapy will evaluate the patient. Patient is bradycardic, discontinued and atenolol increase the dose of amlodipine. Patient blood pressure is still bit higher. 11/13/2020 Patient was evaluated today at the bedside. Patient states that he is short of breath with activity, he was found to be 76% on room air after using the restroom. Patient was placed on a 10 L high flow nasal cannula, can titrate oxygen as needed. Patient denies any chest pain, reports dry cough. She denies abdominal pain, nausea. Reports diarrhea. Patient states that he has does have a fair appetite and he is able to tolerate an oral diet the same. Patient is b eing followed closely by pulmonary services. Patient will continue on Decadron, vitamins, Lovenox for DVT prophylaxis, albuterol inhaler. Patient states that his immediate family had all tested for positive for COVID at this time as well. Additional vital signs included temperature of 96.5 axillary, heart rate 54, blood pressure 123/63, 86% on 5 L nasal cannula. Continue current blood pressure medications. Encourage incentive spirometer. Speech therapy was performed, recommended regular diet with thin liquids, sitting up or 90. Patient will follow-up with GI on an outpatient basis for possible esophageal dysfunction, suspect CP spasming), 11/14/2020 Patient is resting in bed comfortably, on 94% oxygenation on 2 L nasal cannula at the time of my examination. Patient continues to desat with activity. Patient's heart rate is sinus bradycardia, 55, EKG ordered today. Blood pressur e 125/64, temp 97.5. Patient continues on albuterol inhaler, dexamethasone, vitamins for Covid 19 pneumonia. Patient does have a history of proximal atrial fibrillation, eliquis has been resumed at this time. Patient's amiodarone, metoprolol and place on hold due to low heart rate. Patient denies any chest pain, reports intermittent cough, exertional dyspnea. Patient denies abdominal pain, nausea. He reports intermittent diarrhea. Blood cultures have remained negative. Patient's sputum culture did reveal a yeast species as preliminary. Pending finalized cultures. Patient is tolerating a regular diet at this time. 11/15/2020 Patient has significant clinical improvement. Patient is on 2 L of oxygen saturating at 97% will ambulate the patient if the oxygen saturations are okay, patient will be discharged today. Patient the blood sugars are well controlled presently although his long-acting insulin dose was increased because of the Decadron.. Patient will continue this dose of the insulin until he is done with the Decadron. After that patient will resume on previous home dose of Lantus. Patient was also started on sulfonylurea which she'll continue until completion of Decadron. 11/16/2020 Patient is bradycardic but is asymptomatic from that. Patient desaturated with activity on 2 L of oxygen. Patient was on atenolol which was discontinued. Patient is presently on Eliquis. We will obtain an EKG to make sure there is no AV block. Patient doesn't have any fevers at this time. Does have leukocytosis which can be from systemic steroids is receiving. Constitutional: Denied any fatigue denied any fever. Cardio vascular: denied any chest pain, palpitations Gastrointestinal denied any nausea vomiting Pulmonary: As of breath as mentioned above Neurologic denied any new focal deficits All inpatient medications were reviewed and appropriate changes in these medications as dictated in the interval history and assessment and plan. PHYSICAL EXAMINATION: GENERAL: The patient is alert and oriented x3, not in any acute distress. Well developed, well nourished. HEENT: Pupils are round and equally reacting to light. EOMI. No scleral icterus. No conjunctival pallor. Normocephalic, atraumatic. No pharyngeal erythema. No thyromegaly. CARDIOVASCULAR: S1 and S2 present. No murmurs, rubs, or gallops. PULMONARY: Chest is clear to auscultation, no wheezing or crackles. ABDOMEN: Soft, nontender, nondistended, normoactive bowel sounds. No palpable organomegaly. MUSCULOSKELETAL: No joint swelling or deformity. EXTREMITIES: No cyanosis, clubbing, or pedal edema. NEUROLOGICAL: Gross neurological examination did not reveal any focal deficits. SKIN: No rashes. Assessment and plan -Covid 19 pneumonia patient has bilateral pneumonia: Patient will be reviewed on Decadron, pulmonary evaluated the patient, to be chest x-rays consistent with Covid 19 pneumonia Patient will be reviewed on Covid 19 vitamins. Patient's d-dimer is around 3.4. pro- calcitonin is not consistent with bacterial pneumonia. Patient is still requiring 2 L of oxygen -Bradycardia: The db and amiodarone were held, will obtain EKG continue with Eliquis -Type 2 diabetes mellitus: Controlled increasing the dose of long-acting insulin as mentioned above -Gastro-Esophageal reflux disease -Hypertension -Coronary artery disease disease with stents in the past Paroxysmal atrial fibrillation, resumed eliquis, amiodarone and beta db on hold. DVT prophylaxis: eliquis Objective - Vital Signs Vital signs: Vital Signs Temp 97.5 F L 11/16/20 02:00 Pulse 51 L 11/16/20 08:52 Resp 17 11/16/20 02:00 BP 111/61 11/16/20 02:00 Pulse Ox 97 11/16/20 08:52 Intake & Output 11/15/20 11/16/20 11/16/20 18:59 06:59 18:59 Other: Voiding Method Toilet # Voids 5 2 # Bowel Movements 1 - Labs CBC & Chem 7: 11/15/20 08:03 11/15/20 08:03 Labs: Abnormal Lab Results - Last 24 Hours (Table) 11/15/20 11/15/20 11/15/20 Range/Units 08:03 11:16 16:46 BUN 33.0 H (9.0-27.0) mg/dL BUN/Creatinine Ratio 30.00 H (12.00-20.00) Ratio POC Glucose (mg/dL) 245 H 311 H (75-99) mg/dL 11/15/20 11/16/20 Range/Units 20:26 06:56 BUN (9.0-27.0) mg/dL BUN/Creatinine Ratio (12.00-20.00) Ratio POC Glucose (mg/dL) 337 H 148 H (75-99) mg/dL Microbiology - Last 24 Hours (Table) 11/10/20 15:10 Blood Culture - Preliminary Blood No Growth after 120 hours 11/10/20 15:00 Blood Culture - Preliminary Blood No Growth after 120 hours 11/12/20 09:21 Gram Stain - Final Sputum Sputum Culture - Final Yamilet tropicalis
[2020-11-16 11:49] LABS: Glucose,Whole Blood 237 mg/dL (75-99)
--- NOTE | 2020-11-16 12:36 | P.PN ---
Subjective Progress Note Date: 11/16/20 Principal diagnosis: Shortness of breath. Pulmonary/critical care consultation dated 11/11/2020. 85-year-old male, who presents to the emergency department via EMS, from [facility]. The patient states that he has not been feeling well for at least 8-10 days and may be a bit longer. His complaints include fatigue, shortness of breath, cough, and generally just not feeling well. He apparently saw his primary care provider, and was placed on Augmentin. At that point, things got worse, and he went to the emergency department at [facility] when he was diagnosed as having bilateral pneumonia. He was started on IV antibiotics and requested transfer to [facility]. The patient did test positive for coronavirus infection although his initial test was negative. The patient has a history of diabetes mellitus, GERD, hypertension, myocardial infarction, pneumonia, varicose veins, and chronic constipation. He also has a history of CAD, with previous heart catheterization and stent placement. Lab data includes a white count of 9.6, hemoglobin 12.8, hematocrit 39.6, and a platelet count of 275,000. D-dimer was 3.50. Sodium 136, potassium 4.7, chlorides 105, CO2 20, anion gap 11, BUN 19, and creatinine 0.97. Coronavirus testing here was positive. Chest x-ray shows diffuse bilateral airspace disease. Progress note dated 11/12/2020. 85-year-old male, who presents to the emergency department, from [facility]. The patient was diagnosed with bilateral pneumonia, and tested positive for coronavirus infection. The patient does have a history of diabetes mellitus, GERD, hypertension, myocardial infarction, pneumonia, varicose veins, and chronic constipation. Clinically, the patient is feeling a bit better today. No new labs today. The patient saturations are in the mid to high 90s on 2 L nasal cannula. Chest x-ray from yesterday, has been reviewed. Progress note dated 11/13/2020. 85-year-old male, again seen in room 482. He initially presented to the emergency department at [facility]. He was diagnosed with bilateral pneumonia, and tested positive for coronavirus infection. The patient has a history of diabetes mellitus, gastroesophageal reflux disease, hypertension, myocardial infarction, pneumonia, varicose veins, and chronic constipation. The patient was on 2-3 L of nasal oxygen. He looked pretty stable but unfortunately, when he got up to go to the bathroom, his saturations dropped into the 70s. We thought he might be a candidate to be discharged. He may have to wait another day or 2. Today's d-dimer was 2.13. Chest x-ray shows continued peripheral and basilar consolidation, compatible with COVID pneumonia. Progress note dated 11/14/2020. 85-year-old male seen again in room 482. Today, he is resting comfortably. He feels better today. He was on 6 L nasal cannula, and saturations are 100%. We turned him down to 3 L. Saturations are 95-96%. The patient was diagnosed with bilateral pneumonia secondary to coronavirus infection. He is feeling better. In addition, he has a history of diabetes, GERD, hypertension, myocardial infarction, pneumonia, varicose veins, and chronic constipation. Labs today show a white count of 13.3, hemoglobin 12.6, hematocrit 39.5, and a platelet count of 273,000. Sodium 133, potassium 5.1, chlorides 101, CO2 24, anion gap 8 , BUN 32, and creatinine 0.98. Chest x-ray dated November 13, is reviewed. Progress note dated 11/16/2020. 85-year-old male, again seen in room 482. Currently, the patient's on 3 L nasal cannula. When he gets up and goes to the bathroom, he does get more short of breath, and does desaturate a bit. Currently, he is doing better, now that he sitting down. Today I explained number things to the patient again, as he seems to assess same questions over and over. From my perspective, the patient could be discharged. He was diagnosed with bilateral pneumonia secondary to coronavirus infection. He also has a history of diabetes, GERD, hypertension, myocardial infarction, pneumonia, varicose veins, and chronic constipation. No new labs today. Chest x-ray shows an improving pattern of diffuse bilateral infiltrates. Objective - Vital Signs Vital signs: Vital Signs Temp 97.8 F 11/16/20 10:48 Pulse 52 L 11/16/20 10:48 Resp 18 11/16/20 10:48 BP 119/52 11/16/20 10:48 Pulse Ox 95 11/16/20 10:48 Intake & Output 11/15/20 11/16/20 11/16/20 18:59 06:59 18:59 Other: Voiding Method Toilet # Voids 5 2 # Bowel Movements 1 - Exam No acute distress, oriented 3. The patient is currently on 3 L, with a saturation of 95 %. HEENT examination is grossly unremarkable. Neck supple. Full range of motion. No adenopathy thyromegaly or neck vein distention. Cardiovascular examination reveals regular rhythm rate. S1-S2 normal. No S3 or S4. No discernible murmur noted. Heart sounds are distant. Heart rate 52 bpm. Lungs reveal diffuse bilateral rhonchi and crackles. Breath sounds equal. No wheezes. Breath sounds are improved. Abdomen soft bowel sounds are heard. No masses or tenderness. Extremities are intact. No cyanosis clubbing or edema. Skin is without rash or lesion. Neurologic examination is brief but nonfocal. - Labs CBC & Chem 7: 11/15/20 08:03 11/15/20 08:03 Labs: Abnormal Lab Results - Last 24 Hours (Table) 11/15/20 11/15/20 11/16/20 Range/Units 16:46 20:26 06:56 POC Glucose (mg/dL) 311 H 337 H 148 H (75-99) mg/dL 11/16/20 Range/Units 11:48 POC Glucose (mg/dL) 237 H (75-99) mg/dL Microbiology - Last 24 Hours (Table) 11/10/20 15:10 Blood Culture - Preliminary Blood No Growth after 120 hours 11/10/20 15:00 Blood Culture - Preliminary Blood No Growth after 120 hours 11/12/20 09:21 Gram Stain - Final Sputum Sputum Culture - Final Yamilet tropicalis Assessment and Plan Assessment: Acute hypoxemic respiratory failure, secondary to coronavirus/COVID 19 pneumo paula. History of diabetes mellitus. History of gastroesophageal reflux disease. History of hypertension. Coronary artery disease, with multiple stent placements. History of hyperlipidemia. History of myocardial infarction. History of varicose veins. History of chronic constipation. Plan: Plan dated 11/11/2020. Currently, the patient is on Rocephin and Zithromax. If not or ready done, a pro-calcitonin level should be done. Also, the patient is on Decadron, 6 mg a day, and Lovenox 40 mg subcu daily. The patient is beyond the window for REM. The patient is not sick enough to receive TOCI. The patient is on vitamin C, vitamin D3, and zinc. Additional recommendations and suggestions are forthcoming. We'll continue to follow the patient make recommendations where appropriate. Plan dated 11/12/2020. Currently, the patient remains on this, and Fabiana is also receiving vitamins in the form of a week, zinc, and vitamin C. The patient remains on albuterol inhaler. Pro-calcitonin level is 0.28. Additional recommendations and suggestions are forthcoming. We will continue to follow make recommendations where appropriate. Clinically, the patient is doing better. Discharge planning underway. Plan dated 11/13/2020. We are hoping, that this patient might be ready to go home. Unfortunately, when he got up to go to the bathroom, his saturations dropped into the 70s. The patient is not quite ready for discharge. The patient will continue on his current medications. Additional recommendations and suggestions are forthcoming. We will continue to follow this patient. The patient currently is on Lovenox, vitamins, and albuterol inhaler. He is also on Decadron, 6 mg a day. Prognosis is guarded. Chest x-ray, and medications are all reviewed. Plan dated 11/14/2020. The patient's oxygen was turned down from 6 L down to 3 L. Saturations are excellent at 95%. From the pulmonary standpoint, the patient remains on albuterol inhaler, vitamin C, vitamin D3, Decadron, Eliquis, and zinc. We will continue to follow the patient. The patient is getting close to discharge. No additional recommendations are made. Prognosis is guarded. Plan dated 11/16/2020. Currently, the patient's on 3 L. When he does exert himself, he does desaturate. He does recover though. From my perspective, the patient could be discharged. The patient remains on appropriate medications including albuterol inhaler, vitamin C, vitamin D3, Decadron, Eliquis, and zinc. I will check another d-dimer. Medications are reviewed. Everything seems to be appropriate. Additional recommendations and suggestions are forthcoming. A multitude of questions are asked, and all are answered. Time with Patient: Less than 30
[2020-11-16 17:00] LABS: Glucose,Whole Blood 284 mg/dL (75-99)
[2020-11-16 20:40] LABS: Glucose,Whole Blood 420 mg/dL (75-99)
[2020-11-16] MEDS ORDERED: INSULIN ASPART (NovoLOG) 100 UNIT/ML VIAL SQ ONE (20:45)
[2020-11-17 07:33] LABS: Glucose,Whole Blood 98 mg/dL (75-99)
[2020-11-17] MEDS: EXENATIDE 10 MCG/0.04 ML SQ SCH ×2 (08:13→19:47)
[2020-11-17] MEDS: INSULIN ASPART (NovoLOG) 100 UNIT/ML VIAL SQ SCH ×4 (08:13→20:40)
[2020-11-17] MEDS: ZINC SULFATE 220 MG CAP PO SCH (09:07)
[2020-11-17] MEDS: ASCORBIC ACID 500 MG TAB PO SCH ×2 (09:07→20:39)
[2020-11-17] MEDS: PANTOPRAZOLE 40 MG TABLET PO SCH ×2 (09:07→17:22)
[2020-11-17] MEDS: FAMOTIDINE 20 MG TAB PO SCH ×2 (09:07→20:39)
[2020-11-17] MEDS: GABAPENTIN 300 MG CAP PO SCH ×2 (09:07→20:39)
[2020-11-17] MEDS: amLODIPine 10 MG TAB PO SCH (09:07)
[2020-11-17] MEDS: TAMSULOSIN 0.4 MG CAP.ER.24H PO SCH (09:07)
[2020-11-17] MEDS: APIXABAN 5 MG TAB PO SCH ×2 (09:07→20:39)
[2020-11-17] MEDS: GLIMEPIRIDE 2 MG TAB PO SCH ×2 (09:07→20:40)
[2020-11-17] MEDS: NYSTATIN 100,000 UNIT/ML SUSP 500,000 UNIT/5 ML CUP PO SCH ×4 (09:08→20:40)
[2020-11-17] MEDS: INSULIN DETEMIR (LEVEMIR) 100 UNIT/ML SYR SQ SCH ×2 (09:08→18:32)
[2020-11-17] MEDS: LOSARTAN 50 MG TAB PO SCH (09:08)
[2020-11-17] MEDS: CHOLECALCIFEROL 25 MCG (1000 IU) TABLET PO SCH (09:08)
[2020-11-17] MEDS: dexAMETHasone 2 MG TAB PO SCH (09:10)
[2020-11-17 11:13] LABS: Glucose,Whole Blood 236 mg/dL (75-99)
--- NOTE | 2020-11-17 12:35 | P.PN ---
Subjective Patient is an 85-year-old male was transferred from [facility] after he presented there with shortness of breath has been going on for about a week. Patient had a fever as well. Patient did receive Covid 19 vaccine. Covid 19 that was done at [facility] was negative although Covid 19 was repeated here because of the bilateral pneumonia with came back positive. Patient received Covid 19 vaccine in month of May. Patient was complaining of cough was also having some generalized body aches during last week. We'll obtain LDH, d-dimer, pro-calcitonin, pulmonary consultation. Patient is requiring 4 L of oxygen this time. Patient usually doesn't use oxygen at home. 11/11/2020 Patient's inflammatory markers a are elevated. Patient blood glucose is still elevated because of his increasing the dose of long-acting insulin to 30 units from 25 units. Patient is receiving Decadron. There is no evidence of bacteri al pneumonia at this time, antibodies will be discontinued awaiting pro- calcitonin levels. Patient is feeling bit better patient is presently on 3 L of oxygen was on 5 L oxygen yesterday. 11/12/2020 Patient does have improvement in his respiratory status presently requiring 2 L of oxygen patient was complaining of dysphagia because of which speech therapy will evaluate the patient. Patient is bradycardic, discontinued and atenolol increase the dose of amlodipine. Patient blood pressure is still bit higher. 11/13/2020 Patient was evaluated today at the bedside. Patient states that he is short of breath with activity, he was found to be 76% on room air after using the restroom. Patient was placed on a 10 L high flow nasal cannula, can titrate oxygen as needed. Patient denies any chest pain, reports dry cough. She denies abdominal pain, nausea. Reports diarrhea. Patient states that he has does have a fair appetite and he is able to tolerate an oral diet the same. Patient is b eing followed closely by pulmonary services. Patient will continue on Decadron, vitamins, Lovenox for DVT prophylaxis, albuterol inhaler. Patient states that his immediate family had all tested for positive for COVID at this time as well. Additional vital signs included temperature of 96.5 axillary, heart rate 54, blood pressure 123/63, 86% on 5 L nasal cannula. Continue current blood pressure medications. Encourage incentive spirometer. Speech therapy was performed, recommended regular diet with thin liquids, sitting up or 90. Patient will follow-up with GI on an outpatient basis for possible esophageal dysfunction, suspect CP spasming), 11/14/2020 Patient is resting in bed comfortably, on 94% oxygenation on 2 L nasal cannula at the time of my examination. Patient continues to desat with activity. Patient's heart rate is sinus bradycardia, 55, EKG ordered today. Blood pressur e 125/64, temp 97.5. Patient continues on albuterol inhaler, dexamethasone, vitamins for Covid 19 pneumonia. Patient does have a history of proximal atrial fibrillation, eliquis has been resumed at this time. Patient's amiodarone, metoprolol and place on hold due to low heart rate. Patient denies any chest pain, reports intermittent cough, exertional dyspnea. Patient denies abdominal pain, nausea. He reports intermittent diarrhea. Blood cultures have remained negative. Patient's sputum culture did reveal a yeast species as preliminary. Pending finalized cultures. Patient is tolerating a regular diet at this time. 11/15/2020 Patient has significant clinical improvement. Patient is on 2 L of oxygen saturating at 97% will ambulate the patient if the oxygen saturations are okay, patient will be discharged today. Patient the blood sugars are well controlled presently although his long-acting insulin dose was increased because of the Decadron.. Patient will continue this dose of the insulin until he is done with the Decadron. After that patient will resume on previous home dose of Lantus. Patient was also started on sulfonylurea which she'll continue until completion of Decadron. 11/16/2020 Patient is bradycardic but is asymptomatic from that. Patient desaturated with activity on 2 L of oxygen. Patient was on atenolol which was discontinued. Patient is presently on Eliquis. We will obtain an EKG to make sure there is no AV block. Patient doesn't have any fevers at this time. Does have leukocytosis which can be from systemic steroids is receiving. 11/17/2020 Patient is still requiring oxygen upon the activity. Patient also feels better compared to yesterday. We'll continue to monitor. Patient respiratory status is highly fluctuating because of that reason I wanted to discharge the patient when whenever he doesn't need oxygen with activity. Blood pressure is bit low will cut down Norvasc Constitutional: Denied any fatigue denied any fever. Cardio vascular: denied any chest pain, palpitations Gastrointestinal denied any nausea vomiting Pulmonary: As of breath as mentioned above Neurologic denied any new focal deficits All inpatient medications were reviewed and appropriate changes in these medications as dictated in the interval history and assessment and plan. PHYSICAL EXAMINATION: GENERAL: The patient is alert and oriented x3, not in any acute distress. Well developed, well nourished. HEENT: Pupils are round and equally reacting to light. EOMI. No scleral icterus. No conjunctival pallor. Normocephalic, atraumatic. No pharyngeal erythema. No thyromegaly. CARDIOVASCULAR: S1 and S2 present. No murmurs, rubs, or gallops. PULMONARY: Chest is clear to auscultation, no wheezing or crackles. ABDOMEN: Soft, nontender, nondistended, normoactive bowel sounds. No palpable organomegaly. MUSCULOSKELETAL: No joint swelling or deformity. EXTREMITIES: No cyanosis, clubbing, or pedal edema. NEUROLOGICAL: Gross neurological examination did not reveal any focal deficits. SKIN: No rashes. Assessment and plan -Covid 19 pneumonia patient has bilateral pneumonia: Patient will be reviewed on Decadron, pulmonary evaluated the patient, to be chest x-rays consistent with Covid 19 pneumonia Patient will be reviewed on Covid 19 vitamins. Patient's d-dimer is around 3.4. pro- calcitonin is not consistent with bacterial pneumonia. Patient is still requiring 2 L of oxygen -Bradycardia: The db and amiodarone were held, will obtain EKG continue with Eliquis -Type 2 diabetes mellitus: Controlled increasing the dose of long-acting insulin as mentioned above -Gastro-Esophageal reflux disease -Hypertension continue [facility] because of his low normal blood pressures -Coronary artery disease disease with stents in the past Paroxysmal atrial fibrillation, resumed eliquis, amiodarone and beta db on hold. DVT prophylaxis: eliquis Objective - Vital Signs Vital signs: Vital Signs Temp 96.2 F L 11/17/20 10:00 Pulse 56 L 11/17/20 10:00 Resp 18 11/17/20 10:00 BP 100/54 11/17/20 10:00 Pulse Ox 91 L 11/17/20 12:31 Intake & Output 11/16/20 11/17/20 11/17/20 18:59 06:59 18:59 Other: Voiding Method Toilet # Voids 5 1 # Bowel Movements 1 - Labs CBC & Chem 7: 11/15/20 08:03 11/15/20 08:03 Labs: Abnormal Lab Results - Last 24 Hours (Table) 11/16/20 11/16/20 11/16/20 Range/Units 12:42 16:59 20:37 D-Dimer 1.20 H (<0.60) mg/L FEU POC Glucose (mg/dL) 284 H 420 H (75-99) mg/dL 11/17/20 Range/Units 11:10 D-Dimer (<0.60) mg/L FEU POC Glucose (mg/dL) 236 H (75-99) mg/dL Microbiology - Last 24 Hours (Table) 11/10/20 15:10 Blood Culture - Final Blood No Growth after 144 hours 11/10/20 15:00 Blood Culture - Final Blood No Growth after 144 hours
--- NOTE | 2020-11-17 13:31 | P.PN ---
Subjective Progress Note Date: 11/17/20 Principal diagnosis: COVID-19 pneumonia On 11/17/2020 patient seen in follow-up on medical surgical floor. He is resting in bed, he denies any acute distress. He is currently satting 92-94% on 2 L, his been afebrile overnight, vital signs have been stable, he denies any chest discomfort denies any worsening cough, he does get dyspneic with exertion and walking in the room, as had no acute events overnight, he remains on Decadron 6 mg daily, he is on oral anticoagulation 5 mg twice daily, he is on COVID-19 vitamins. No nausea vomiting or diarrhea. He is tolerating oral intake. Yesterday chest x-ray shows bilateral opacities slightly improved in appearance. Objective - Vital Signs Vital signs: Vital Signs Temp 96.2 F L 11/17/20 10:00 Pulse 56 L 11/17/20 10:00 Resp 18 11/17/20 10:00 BP 100/54 11/17/20 10:00 Pulse Ox 91 L 11/17/20 12:31 Intake & Output 11/16/20 11/17/20 11/17/20 18:59 06:59 18:59 Other: Voiding Method Toilet # Voids 5 1 # Bowel Movements 1 - Exam GENERAL EXAM: Alert, very pleasant, 85-year-old white male, on 2 L of oxygen a pulse ox of 92% comfortable in no apparent distress. HEAD: Normocephalic/atraumatic. EYES: Normal reaction of pupils, equal size. Conjunctiva pink, sclera white. NOSE: Clear with pink turbinates. THROAT: No erythema or exudates. NECK: No masses, no JVD, no thyroid enlargement, no adenopathy. CHEST: No chest wall deformity. Symmetrical expansion. LUNGS: Equal air entry with bibasilar crackles CVS: Regular rate and rhythm, normal S1 and S2, no gallops, no murmurs, no rubs ABDOMEN: Soft, nontender. No hepatosplenomegaly, normal bowel sounds, no guarding or rigidity. EXTREMITIES: No clubbing, no edema, no cyanosis, 2+ pulses and upper and lower extremities. MUSCULOSKELETAL: Muscle strength and tone normal. SPINE: No scoliosis or deformity SKIN: No rashes CENTRAL NERVOUS SYSTEM: Alert and oriented -3. No focal deficits, tone is normal in all 4 extremities. PSYCHIATRIC: Alert and oriented -3. Appropriate affect. Intact judgment and insight. - Labs CBC & Chem 7: 11/15/20 08:03 11/15/20 08:03 Labs: Abnormal Lab Results - Last 24 Hours (Table) 11/16/20 11/16/20 11/17/20 Range/Units 16:59 20:37 11:10 POC Glucose (mg/dL) 284 H 420 H 236 H (75-99) mg/dL Microbiology - Last 24 Hours (Table) 11/10/20 15:10 Blood Culture - Final Blood No Growth after 144 hours 11/10/20 15:00 Blood Culture - Final Blood No Growth after 144 hours Assessment and Plan Plan: Assessment: #1. Acute hypoxic respiratory failure, secondary to COVID-19 pneumonia, #2. History of diabetes mellitus type 2 #3. History of GERD/reflux #4. Hypertension #5. CAD with multiple stent placements he #6. Hyperlipidemia #7. History of myocardial infarction #8. History of varicose veins Plan: Patient has remained stable Still has some exertional dyspnea, still requiring oxygen, and patient does qualify for home oxygen as he satting 85% on room air with ambulation No fever or chills, tolerating ambulation in the room Vital signs have been stable Yesterday's chest x-ray showed improving bilateral pneumonia Patient was advised that she will need oxygen possibly for next few weeks until fully recovered He'll need outpatient follow-up, otherwise can be considered for discharge home to complete oral course of Decadron Continue COVID-19 vitamins Ventolin inhaler, oral anticoagulation I performed a history & physical examination of the patient and discussed their management with my nurse practitioner, Rhea Ervin. I reviewed the nurse practitioner's note and agree with the documented findings and plan of care. Lung sounds are positive for diffuse crackles throughout the lung [place]. The findings and the impression was discussed with the patient. I attest to the documentation by the nurse practitioner. Time with Patient: Less than 30
[2020-11-17 13:56] VITALS: BMI 26.7
[2020-11-17 15:43] LABS: Glucose,Whole Blood 268 mg/dL (75-99)
[2020-11-17 17:03] LABS: Glucose,Whole Blood 224 mg/dL (75-99)
[2020-11-17 20:18] LABS: Glucose,Whole Blood 262 mg/dL (75-99)
[2020-11-18 07:09] LABS: Glucose,Whole Blood 112 mg/dL (75-99)
[2020-11-18] MEDS: INSULIN ASPART (NovoLOG) 100 UNIT/ML VIAL SQ SCH ×2 (08:05→12:21)
[2020-11-18] MEDS: INSULIN DETEMIR (LEVEMIR) 100 UNIT/ML SYR SQ SCH (08:16)
[2020-11-18] MEDS: FAMOTIDINE 20 MG TAB PO SCH (08:17)
[2020-11-18] MEDS: ASCORBIC ACID 500 MG TAB PO SCH (08:17)
[2020-11-18] MEDS: TAMSULOSIN 0.4 MG CAP.ER.24H PO SCH (08:17)
[2020-11-18] MEDS: APIXABAN 5 MG TAB PO SCH (08:17)
[2020-11-18] MEDS: CHOLECALCIFEROL 25 MCG (1000 IU) TABLET PO SCH (08:17)
[2020-11-18] MEDS: GABAPENTIN 300 MG CAP PO SCH (08:17)
[2020-11-18] MEDS: ZINC SULFATE 220 MG CAP PO SCH (08:17)
[2020-11-18] MEDS: PANTOPRAZOLE 40 MG TABLET PO SCH (08:17)
[2020-11-18] MEDS: dexAMETHasone 2 MG TAB PO SCH (08:17)
[2020-11-18] MEDS: EXENATIDE 10 MCG/0.04 ML SQ SCH (08:17)
[2020-11-18] MEDS: NYSTATIN 100,000 UNIT/ML SUSP 500,000 UNIT/5 ML CUP PO SCH ×2 (08:18→14:25)
[2020-11-18] MEDS: GLIMEPIRIDE 2 MG TAB PO SCH (08:21)
[2020-11-18] MEDS: LOSARTAN 50 MG TAB PO SCH (08:21)
[2020-11-18] MEDS ORDERED: amLODIPine 5 MG TAB PO SCH (09:00)
[2020-11-18 11:42] LABS: Glucose,Whole Blood 130 mg/dL (75-99)
--- NOTE | 2020-11-18 12:33 | P.PN ---
Subjective Progress Note Date: 11/18/20 Principal diagnosis: COVID-19 pneumonia On 11/17/2020 patient seen in follow-up on medical surgical floor. He is resting in bed, he denies any acute distress. He is currently satting 92-94% on 2 L, his been afebrile overnight, vital signs have been stable, he denies any chest discomfort denies any worsening cough, he does get dyspneic with exertion and walking in the room, as had no acute events overnight, he remains on Decadron 6 mg daily, he is on oral anticoagulation 5 mg twice daily, he is on COVID-19 vitamins. No nausea vomiting or diarrhea. He is tolerating oral intake. Yesterday chest x-ray shows bilateral opacities slightly improved in appearance. On 11/18/2020 patient seen in follow-up on medical surgical floor. He is awake and alert, he is resting comfortably in bed, his current activities of oxygen his pulse ox is 92%, no chest discomfort, no worsening dyspnea, his been tolerating ambulation in the room, his had no fever or chills, vital signs have been stable, he remains on oral anticoagulation in the form of Eliquis, he remains on oral Decadron 6 mg daily in addition to COVID-19 vitamins, lung sounds reveal some bibasilar crackles, his last chest x-ray showing bilateral opacities that were improving in appearance. His had no acute events overnight, he is tolerating oral intake, no nausea vomiting or diarrhea. No abdominal pain. Objective - Vital Signs Vital signs: Vital Signs Temp 97.7 F 11/18/20 09:29 Pulse 59 L 11/18/20 09:29 Resp 18 11/18/20 09:29 BP 145/64 11/18/20 09:29 Pulse Ox 92 L 11/18/20 09:29 Intake & Output 11/17/20 11/18/20 11/18/20 18:59 06:59 18:59 Intake Total 240 Balance 240 Weight 79.832 kg Intake: Oral 240 Other: Voiding Method Toilet # Voids 4 2 - Exam GENERAL EXAM: Alert, very pleasant, 85-year-old white male, on 2 L of oxygen a pulse ox of 92% comfortable in no apparent distress. HEAD: Normocephalic/atraumatic. EYES: Normal reaction of pupils, equal size. Conjunctiva pink, sclera white. NOSE: Clear with pink turbinates. THROAT: No erythema or exudates. NECK: No masses, no JVD, no thyroid enlargement, no adenopathy. CHEST: No chest wall deformity. Symmetrical expansion. LUNGS: Equal air entry with bibasilar crackles CVS: Regular rate and rhythm, normal S1 and S2, no gallops, no murmurs, no rubs ABDOMEN: Soft, nontender. No hepatosplenomegaly, normal bowel sounds, no guarding or rigidity. EXTREMITIES: No clubbing, no edema, no cyanosis, 2+ pulses and upper and lower extremities. MUSCULOSKELETAL: Muscle strength and tone normal. SPINE: No scoliosis or deformity SKIN: No rashes CENTRAL NERVOUS SYSTEM: Alert and oriented -3. No focal deficits, tone is normal in all 4 extremities. PSYCHIATRIC: Alert and oriented -3. Appropriate affect. Intact judgment and insight. - Labs CBC & Chem 7: 11/15/20 08:03 11/15/20 08:03 Labs: Abnormal Lab Results - Last 24 Hours (Table) 11/17/20 11/17/20 11/17/20 Range/Units 15:41 16:58 20:16 POC Glucose (mg/dL) 268 H 224 H 262 H (75-99) mg/dL 11/18/20 11/18/20 Range/Units 07:08 11:41 POC Glucose (mg/dL) 112 H 130 H (75-99) mg/dL Assessment and Plan Plan: Assessment: #1. Acute hypoxic respiratory failure, secondary to COVID-19 pneumonia, #2. History of diabetes mellitus type 2 #3. History of GERD/reflux #4. Hypertension #5. CAD with multiple stent placements he #6. Hyperlipidemia #7. History of myocardial infarction #8. History of varicose veins Plan: Patient remains on 2 L of supplemental oxygen Did qualify for home oxygen during yesterday's evaluation Otherwise clinically he has remained stable, vital signs are stable, no fever or chills Continue Decadron Continue Eliquis Continue COVID-19 vitamins Patient could be considered for discharge home from pulmonary perspective I performed a history & physical examination of the patient and discussed their management with my nurse practitioner, Rhea Ervin. I reviewed the nurse practitioner's note and agree with the documented findings and plan of care. Lung sounds are positive for diffuse crackles throughout the lung [place]. The findings and the impression was discussed with the patient. I attest to the documentation by the nurse practitioner. Time with Patient: Less than 30
[2020-11-18 14:24] VITALS: BP 129/72; PULSE 54; RESP 17; TEMP 97.9
--- NOTE | 2020-11-19 00:16 | P.DS ---
Providers Date of admission: 11/10/20 14:45 Attending physician: Kishan Sandy Consults: 11/10/20 17:39 Consult Physician Routine Consulting Provider: Florentino Conley Consult Reason/Comments: Covid 19 Do you want consulting provider notified?: Yes Primary care physician: Madeleine De Dios MD Hospital Course: Diagnoses: Bilateral Covid pneumonia Acute hypoxic respiratory failure secondary to above 2 diabetes mellitus Hypertension History of coronary artery disease with stent Hyperlipidemia A. fib on [facility] course: This is a pleasant 85 years old Male Who Presents with Respiratory Distress Secondary to Bilateral, Pneumonia, Also with Acute Hypoxic Respiratory Failure. Placed on Oxygen. He Was Treated with Dexamethasone, multiple vitamins and oxygen therapy. Patient showed interval improvement and on the day of discharge he has mild exertional dyspnea. He was saturating well on 2 L oxygen via nasal cannula. Patient was evaluated and he qualify for home oxygen, oxygen tank is delivered at bedside prior to discharge. Patient is already on Eliquis for his history of A. fib, he states he has his Eliquis at home. Also patient denies chest pain. No pain. Diarrhea or urinary complaints. 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 Multiple vitamins. Line patient was instructed to use his home dose of Lantus. Patient told me he takes 17.5 units twice a day. As well as byetta 10 mg and Amaryl 2 mg twice daily, was instructed to resume his regimen of oral diabetes medication and he agrees. Also patient was instructed to follow up and monitor his glucose 4 times a day and follow-up with his PCP and he agrees. Was instructed extensively about 5 or and hypoglycemia and management. Patient also with history of A. fib on metoprolol at home this was stopped due to bradycardia and started on Norvasc. Patient informed and he agrees. Problems and management plan were discussed with the patient and he verbalized understanding and acceptance Patient was found stable and can be discharged home however he needs follow-up as an outpatient. Patient was [facility] and patient agrees to call and make his own appointment Instructed to follow up with Dr. Lara blasting cap assembler on 12/18 and he agrees to follow up with appointment Physical exam Gen: patient is a AAOx3, no distress CVS: S1-S2, RRR, no murmur Lungs: B/L CTA, no wheezing Abdomen: soft, no distention, no tenderness, positive bowel sounds Extremity: no leg edema or induration Time spent more than 35 minutes Plan - Discharge Summary Discharge Rx Participant: No New Discharge Prescriptions: New Nystatin 100,000 Unit/ml Susp [Mycostatin Oral Susp] 500,000 unit PO QID #250 ml Zinc Sulfate [Orazinc] 220 mg PO DAILY #20 cap Ascorbic Acid [Vitamin C] 500 mg PO BID #30 tab amLODIPine [Norvasc] 5 mg PO QAM #30 tab Exenatide [Byetta] 10 mcg SQ BID Glimepiride [Amaryl] 2 mg PO BID #20 tab Dexamethasone [Decadron] 6 mg PO DAILY 2 Days #2 tablet Insulin Glargine [Lantus] 17.5 unit SQ BID #1 vial Continue Albuterol Inhaler [Ventolin Hfa Inhaler] 1 - 2 puff INHALATION RT-Q8H PRN PRN Reason: Shortness Of Breath Cholecalciferol (Vitamin D3) [Vitamin D3 (125 MCG = 5,000 IU)] 125 mcg PO Q7D Apixaban [Eliquis] 5 mg PO Q12H Loperamide HCl [Loperamide] 2 mg PO Q4-6H PRN PRN Reason: Diarrhea Gabapentin [Neurontin] 600 mg PO BID Losartan [Cozaar] 50 mg PO DAILY Cyanocobalamin (Vitamin B-12) [Vitamin B-12] 1,000 mcg PO DAILY Tamsulosin HCl [Flomax] 0.4 mg PO DAILY Pantoprazole [Protonix] 40 mg PO BID Benzonatate [Tessalon Perles] 100 mg PO TID PRN PRN Reason: Cough Discontinued Insulin Glargine [Lantus] 17 unit SQ BID-W/MEALS Aspirin 162 mg PO DAILY Doxycycline Hyclate 100 mg PO Q12H Amoxic-Pot Clav 875-125Mg [Augmentin 875-125] 1 tab PO Q12H Loratadine [Claritin] 10 mg PO DAILY Exenatide [Byetta] 10 mcg SQ BID Metoprolol Tartrate [Lopressor] 50 mg PO BID Furosemide [Lasix] 20 mg PO DAILY Amiodarone [Cordarone] 200 mg PO DAILY Spironolactone [Aldactone] 25 mg PO DAILY Discharge Medication List Albuterol Inhaler [Ventolin Hfa Inhaler] 1 - 2 puff INHALATION RT-Q8H PRN 11/10/20 [History] Apixaban [Eliquis] 5 mg PO Q12H 11/10/20 [History] Benzonatate [Tessalon Perles] 100 mg PO TID PRN 11/10/20 [History] Cholecalciferol (Vitamin D3) [Vitamin D3 (125 MCG = 5,000 IU)] 125 mcg PO Q7D [History] Cyanocobalamin (Vitamin B-12) [Vitamin B-12] 1,000 mcg PO DAILY 11/10/20 [History] Gabapentin [Neurontin] 600 mg PO BID 11/10/20 [History] Loperamide HCl [Loperamide] 2 mg PO Q4-6H PRN 11/10/20 [History] Losartan [Cozaar] 50 mg PO DAILY 11/10/20 [History] Pantoprazole [Protonix] 40 mg PO BID 11/10/20 [History] Tamsulosin HCl [Flomax] 0.4 mg PO DAILY 11/10/20 [History] Ascorbic Acid [Vitamin C] 500 mg PO BID #30 tab 11/15/20 [Rx] Glimepiride [Amaryl] 2 mg PO BID #20 tab 11/15/20 [Rx] Nystatin 100,000 Unit/ml Susp [Mycostatin Oral Susp] 500,000 unit PO QID #250 ml 11/15/20 [Rx] Zinc Sulfate [Orazinc] 220 mg PO DAILY #20 cap 11/15/20 [Rx] Dexamethasone [Decadron] 6 mg PO DAILY 2 Days #2 tablet 11/18/20 [Rx] Exenatide [Byetta] 10 mcg SQ BID 11/18/20 [Rx] Insulin Glargine [Lantus] 17.5 unit SQ BID #1 vial 11/18/20 [Rx] amLODIPine [Norvasc] 5 mg PO QAM #30 tab 11/18/20 [Rx] Follow up Appointment(s)/Referral(s): [facility] [NON-STAFF] - As Needed (oxygen) Miguel Lara DO [Doctor of Osteopathic Medicine] - 12/18/20 2:30 pm (With Faye) Madeleine De Dios MD [Primary Care Provider] - 1-2 days (Please call office for your appointment. Thank you.) Lux Roldan MD [STAFF PHYSICIAN] - As Needed Patient Instructions/Handouts: Coronavirus Disease 2019 (COVID-19) Activity/Diet/Wound Care/Special Instructions: Heart healthy diet, low carbohydrate diets Activity is restricted till you see your doctor We recommend to check her glucose 4 times a day, before each meal and at bedt you keep the results in a log book, and bring it to your doctor on your appointment date If her glucose less than 70 or more than 400 called 911 and come to emergency room Continue with her home dose of Lantus 17.5 units twice a day and home doser of Byetta 10 mg. also home dose of Amaryl 2 mg twice a day Discharge Disposition: HOME SELF-CARE
== END 2020-11-18 16:41 | disposition home or self-care (01) | DRG 177 ==
LOC: EC 14:16 → SUPCPDRO 14:16 → 4SSUR 14:45
PROVIDERS: ADMIT Internal Medicine; ATTEND Internal Medicine
DX: U07.1 COVID-19 (principal); J12.82 Pneumonia due to coronavirus disease 2019; J96.01 Acute respiratory failure with hypoxia; E11.649 Type 2 diabetes mellitus with hypoglycemia without coma; E11.65 Type 2 diabetes mellitus with hyperglycemia; E78.5 Hyperlipidemia, unspecified; E66.3 Overweight; I10 Essential (primary) hypertension; I25.10 Atherosclerotic heart disease of native coronary artery without angina pectoris; K59.09 Other constipation; I83.90 Asymptomatic varicose veins of unspecified lower extremity; I25.2 Old myocardial infarction; I48.0 Paroxysmal atrial fibrillation; K21.9 Gastro-esophageal reflux disease without esophagitis; R13.10 Dysphagia, unspecified; T38.0X5A Adverse effect of glucocorticoids and synthetic analogues, initial encounter; Z79.01 Long term (current) use of anticoagulants; Z79.4 Long term (current) use of insulin; Z79.82 Long term (current) use of aspirin; Z79.899 Other long term (current) drug therapy; Z82.49 Family history of ischemic heart disease and other diseases of the circulatory system; Z87.891 Personal history of nicotine dependence; Z95.5 Presence of coronary angioplasty implant and graft; Z88.8 Allergy status to other drugs, medicaments and biological substances
CPT/HCPCS: 36415; 71045; 80048; 80053; 82728; 83605; 83615; 84145; 85025; 85027; 85379; 86140; 87040; 87070; 87205; 87635; 93005; 94760